=== PATIENT | female | born 1945 | race Two or more races ===

== ENCOUNTER → 2024-10-08 | Outpatient (CLI) | payer MEDICARE, MEDICAID, SELFPAY ==
--- NOTE | 2024-10-08 10:30 | XR_ITS ---
Examination: Sacroiliac joints 3 views TECHNIQUE: AP DAVEY SABRA sacroiliac joints 3 views Exam date and time: October 08, 2024 1145 hours INDICATIONS: Sacral pain years FINDINGS: Moderate bilateral sacroiliitis No fracture Symmetrical sacral foramina IMPRESSION: Moderate bilateral sacroiliitis
--- NOTE | 2024-10-08 10:30 | XR_ITS ---
Examination: Lumbar spine, 5 views Technique: Lumbar spine AP, lateral, coned lateral lower lumbar spine, bilateral obliques 5 views Exam date and time: October 08, 2024 1142 hours INDICATIONS: Lower back pain radiating down the left leg years FINDINGS: Prominent osteopenia Moderate to advanced diffuse facet arthropathy No lumbar fracture Grade 1 anterolisthesis L4 on L5 Moderate degenerative disc disease L1-L2, L2-L3, L5-S1 IMPRESSION: Moderate degenerative disc disease L1-L2, L2-L3, L5-S1
--- NOTE | 2024-10-08 10:30 | XR_ITS ---
Examination:Left hip AP, lateral, AP pelvis 3 views Technique: Hip AP lateral, AP pelvis, 3 views Exam date and time:October 08, 2024 1142 hours INDICATIONS: Low back pain radiating to the left hip years FINDINGS: Prominent osteopenia Moderate narrowing hip joints No left hip fracture or dislocation Right hip bones of the pelvis intact IMPRESSION: Moderate narrowing hip joints.
--- NOTE | 2024-10-08 14:30 | XR_ITS ---
Examination: Bone densitometry Date and time of exam:October 08, 2024 1046 hours INDICATIONS: Hysterectomy age 41, diabetic, personal history osteoporosis Technique: Lumbar spine and hip total bone mineralization values of an calculated. Peak reference and age match control results have been displayed. Findings: Lumbar spine total bone mineralization is0.849 gm/cm2. This is 1.8 standard deviations below peak reference. This is 1.8 standard deviations above age-matched controls. Hip total bone mineralization is 0.829 gm/cm2 This is 1.0 standard deviations below peak reference. This is 1.0 standard deviations above age-matched controls Impression: There is osteopenia based on lumbar spine measurements. There is osteoporosis based on hip measurements Lumbar mineralization is increase 15.1% compared with June 04, 2021 Hip mineralization is decreased 2.4% compared with June 04, 2021
== END | disposition home or self-care (01) ==
PROVIDERS: PCP Nurse Practitioner Family; Referring Provider Nurse Practitioner Family; Visit Provider Nurse Practitioner Family
DX: M85.88 Other specified disorders of bone density and structure, other site (principal); M81.0 Age-related osteoporosis without current pathological fracture; M25.852 Other specified joint disorders, left hip; M51.369 Other intervertebral disc degeneration, lumbar region without mention of lumbar back pain or lower extremity pain; M51.379 Other intervertebral disc degeneration, lumbosacral region without mention of lumbar back pain or lower extremity pain; M46.1 Sacroiliitis, not elsewhere classified
CPT/HCPCS: 72110; 72202; 73502; 77080

== ENCOUNTER → 2025-02-03 | Outpatient (CLI) | payer MEDICARE, MEDICAID, SELFPAY ==
[2025-02-03 11:21] LABS: Basophils % (Auto) 1 % (0-2.5); Eosinophils # (Auto) 0.2 Thou/mm3 (0.0-0.5); Eosinophils % (Auto) 2 % (0-10); Hematocrit 43.2 % (36.0-46.0); Hemoglobin 14.5 g/dL (12.0-16.0); Immature Granulocytes % (Auto) 1 % (0-0); Immature Granulocytes Auto 0.04 Thou/mm3 (0.00-0.00); Lymphocytes # (Auto) 1.3 Thou/mm3 (1.0-4.8); Lymphocytes % (Auto) 15 % (10-50); Mean Corpuscular HGB Conc 33.6 g/dl (31.0-37.0); Mean Corpuscular Hemoglobin 31.9 pg (25.0-35.0); Mean Corpuscular Volume 95 fL (80-100); Monocytes # (Auto) 0.5 Thou/mm3 (0.0-0.8); Monocytes % (Auto) 5 % (0-12); Neutrophils # (Auto) 6.7 Thou/mm3 (1.8-7.7); Neutrophils % (Auto) 77 % (37-80); Nucleated Red Blood Cell % 0 /100 WBC (0); Platelet Count 174 Thou/mm3 (140-440); RDW Standard Deviation 46.2 fL (36.4-46.3); Red Blood Count 4.55 Miln/mm3 (4.00-5.20); White Blood Count 8.8 Thou/mm3 (3.6-11.0)
[2025-02-03 11:45] LABS: B-Type Natriuretic Peptide 22 pg/mL (0-100)
[2025-02-03 11:49] LABS: Alanine Aminotransferase 19 U/L (10-49); Albumin, Serum 4.1 gm/dL (3.4-4.8); Alkaline Phosphatase 87 U/L (46-116); Anion Gap 7 (7-16); Aspartate Amino Transferase 19 U/L (0-34); BUN/Creatinine Ratio 16 Ratio (12-20); Bilirubin,Direct 0.3 mg/dL (0.0-0.3); Bilirubin,Total 0.9 mg/dL (0.3-1.2); Blood Urea Nitrogen 13 mg/dL (9-23); Calcium 9.3 mg/dL (8.3-10.6); Cardiac Risk Estimate 4.1 RATIO (3.7-5.6); Chloride 98 mMol/L (98-107); Cholesterol 185 mg/dL (132-200); Creatinine (Component) 0.8 mg/dL (0.6-1.3); Free T4 (Free Thyroxine) 1.09 ng/dL (0.89-1.76); Glucose 238 mg/dL (74-106); HDL Cholesterol 45 mg/dL (40-60); LDL Cholesterol,Calculated 115 mg/dL (0-130); Osmolality,Calculated 280 (275-295); Potassium 4.2 mMol/L (3.4-5.1); Sodium 136 mMol/L (136-145); Thyroid Stimulating Hormone 2.44 uIU/mL (0.55-4.78); Total Protein 6.9 gm/dL (5.7-8.2); Triglycerides 123 mg/dL (30-150); eGFR > 60 See Note
[2025-02-03 11:51] LABS: Glucose Estimated Average 192 mg/dL (80-131); Hemoglobin A1C 8.3 % Hgb (4.8-6.0)
== END | disposition home or self-care (01) ==
LOC: COPL 10:41
PROVIDERS: PCP Nurse Practitioner Family; Referring Provider Internal Medicine Cardiovascular Disease; Visit Provider Internal Medicine Cardiovascular Disease
DX: E11.65 Type 2 diabetes mellitus with hyperglycemia (principal); E78.5 Hyperlipidemia, unspecified; I11.0 Hypertensive heart disease with heart failure; I50.9 Heart failure, unspecified
CPT/HCPCS: 36415; 80048; 80061; 80076; 83036; 83880; 84439; 84443; 85025

== ENCOUNTER → 2025-03-05 | Outpatient (CLI) | payer MEDICARE, MEDICAID, SELFPAY ==
[2025-03-05 10:38] LABS: Basophils # (Auto) 0.1 Thou/mm3 (0.0-0.2); Basophils % (Auto) 1 % (0-2.5); Eosinophils # (Auto) 0.2 Thou/mm3 (0.0-0.5); Eosinophils % (Auto) 2 % (0-10); Hemoglobin 15.3 g/dL (12.0-16.0); Immature Granulocytes % (Auto) 1 % (0-0); Immature Granulocytes Auto 0.05 Thou/mm3 (0.00-0.00); Lymphocytes # (Auto) 1.3 Thou/mm3 (1.0-4.8); Lymphocytes % (Auto) 14 % (10-50); Mean Corpuscular HGB Conc 33.3 g/dl (31.0-37.0); Mean Corpuscular Hemoglobin 31.9 pg (25.0-35.0); Mean Corpuscular Volume 96 fL (80-100); Monocytes # (Auto) 0.6 Thou/mm3 (0.0-0.8); Monocytes % (Auto) 7 % (0-12); Neutrophils # (Auto) 7.1 Thou/mm3 (1.8-7.7); Neutrophils % (Auto) 77 % (37-80); Nucleated Red Blood Cell % 0 /100 WBC (0); Platelet Count 178 Thou/mm3 (140-440); RDW Standard Deviation 47.4 fL (36.4-46.3); White Blood Count 9.3 Thou/mm3 (3.6-11.0)
[2025-03-05 10:52] LABS: Sed Rate (ESR) 7 mm/hr (0-30)
[2025-03-05 11:04] LABS: Alanine Aminotransferase 16 U/L (10-49); Albumin, Serum 4.4 gm/dL (3.4-4.8); Albumin/Globulin Ratio 1.4 (1.2-2.2); Alkaline Phosphatase 86 U/L (46-116); Anion Gap 6 (7-16); Aspartate Amino Transferase 23 U/L (0-34); BUN/Creatinine Ratio 16 Ratio (12-20); Bilirubin,Total 0.7 mg/dL (0.3-1.2); Blood Urea Nitrogen 11 mg/dL (9-23); C-Reactive Protein 0.5 mg/dL (0.0-0.9); Calcium 9.7 mg/dL (8.3-10.6); Calcium (Corrected) 9.7 mg/dL (8.5-10.1); Carbon Dioxide 34.3 mMol/L (20.0-31.0); Chloride 101 mMol/L (98-107); Creatinine (Component) 0.7 mg/dL (0.6-1.3); Globulin 3.1 gm/dL (2.3-3.5); Glucose 172 mg/dL (74-106); Osmolality,Calculated 284 (275-295); Potassium 3.8 mMol/L (3.4-5.1); Sodium 141 mMol/L (136-145); Total Protein 7.5 gm/dL (5.7-8.2); eGFR > 60 See Note
== END | disposition home or self-care (01) ==
LOC: COPL 09:58
PROVIDERS: PCP Family Medicine; Referring Provider Nurse Practitioner Family; Visit Provider Nurse Practitioner Family
DX: M06.09 Rheumatoid arthritis without rheumatoid factor, multiple sites (principal)
CPT/HCPCS: 36415; 80053; 85025; 85652; 86140

== ENCOUNTER 2025-05-01 10:11 | Outpatient (RCR) | payer MEDICARE, MEDICAID, SELFPAY ==
--- NOTE | 2025-05-01 10:45 | PT.OIERPT ---
PT OP Initial Eval Patient Information Outpatient Physical Therapy Treatment Date: 05/01/25 Visit Reasons: Low back pain Medical Diagnosis: M54.40 Treatment Dx #1: LBP with radiculopathy Start of Care: 05/01/25 Date of Onset: 2 months ago Smoking Status Smoking Status: Never smoker Initial Assessment Subjective: Pt is 80 yr old central african speaking female who reports LBP and B LE pain and numbness worsening x2 months. Increased pain with bending and lifting things and getting out of a chair to start walking. She feels limited with HH chores. She fell years ago and wonders if that has something to do with the pain. PLOF: pt wasn't limited with walking distance by the LBP PMH: RA, HTN, DM, allergies, osteoporosis Imaging: Xray of L/S in EMR Grade 1 anterolisthesis L4 on L5, Moderate degenerative disc disease L1-L2, L2-L3, L5-S1 Pt goal: less pain to walk further Objective: ? Trunk ArOM: ? B SB 50% of normal with pain ? Extension: 20% ? Flexion: to floor with LBP ? B rotation: 60% with pain ? TTP: moderate paraspinals L5-S1 ? Neuro: B SLR: negative Sensation: diminished to light touch B ankles and feet R>L Assessment: ? Pt presents with trunk flexion sensitivity and overlying myofascial pain ? and TTP around L5-S1 consistent with imaging that shows ? lumbar DDD and spondylolisthesis with radiculopathy. Pt requires skilled therapy in order to decrease ? pain and improve sitting/standing tolerance and has poor/fair rehab potential. Barriers to progress may be the spondylolisthesis L4 on L5. Eval followed by HEP printout. Short Term and Residential Goals ? 1. Ind with HEP ? 2. Improved ambulatory tolerance to 10 minutes with <=4/10 LBP ? 3. Decreased lower paraspinal TTP from mod to min 4. Improved HH chore tolerance to at least 30 minutes with <=3/10 LBP and no ?increase in LE ssx ? Treatment Plan 60 day POC 1. Manual therapy ? 2. Therex ? 3. Modalities as indicated, moist heat, ice, estim, mechanical traction Frequency and Duration: 1-2x a week for 8 visits Certification Dates: 05/01/25 to 06/30/25 Procedure Charges OP PT Eval Mod Complex 30 minutes: Yes
== END 2025-05-12 23:59 | disposition home or self-care (01) ==
LOC: CPTX 10:11
PROVIDERS: PCP Nurse Practitioner Family; Referring Provider Nurse Practitioner Family; Visit Provider Nurse Practitioner Family
DX: M54.16 Radiculopathy, lumbar region (principal); I10 Essential (primary) hypertension; E11.9 Type 2 diabetes mellitus without complications
CPT/HCPCS: 97162

== ENCOUNTER 2025-05-06 15:57 | Inpatient (IN) | payer MEDICARE, MEDICAID, SELFPAY ==
[2025-05-06 16:17] VITALS: BP 122/65; PULSE 64; RESP 22; TEMP 36.4; O2SAT 88; BMI 41.1
--- NOTE | 2025-05-06 16:17 | EKG_ITS ---
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
[2025-05-06 16:18] VITALS: O2SAT 93
--- NOTE | 2025-05-06 16:36 | XR_ITS ---
Examination: PA lateral chest 2 views TECHNIQUE: Upright PA and lateral chest 2 views Date and time: May 06, 2025, 1733 hours Comparison August 01, 2019 INDICATIONS: Coughing 2 days. FINDINGS: Pneumonia right middle lobe and right base Mild prominence left ventricle 17 mm pulmonary nodule in the right lower lung zone Mild vascular congestion Deviation trachea to the left which may relate to enlarged left thyroid lobe IMPRESSION: Pneumonia right middle lobe and right base Suggest CT chest without contrast follow-up to exclude 17 mm pulmonary nodule in the right lower lobe and confirm a enlarged left thyroid displacing the trachea to the right
--- NOTE | 2025-05-06 16:38 | EDRME_ITS ---
Rapid Medical Screening Exam [facility] Arrival date/time: 05/06/25 15:57 80-year-old female presents to the emergency department today for complaints of cough, congestion and sore throat as well as shortness of breath and dizziness Patient hypoxic at the time of presentation patient was placed on oxygen Chief Complaint: Dizziness Vital signs: Vital Signs Temperature 97.6 F 05/06/25 16:17 Pulse Rate 64 05/06/25 16:17 Respiratory Rate 22 H 05/06/25 16:17 Blood Pressure 122/65 05/06/25 16:17 Pulse Oximetry (%) 88 L 05/06/25 16:17 Oxygen Delivery Method Room Air 05/06/25 16:17
[2025-05-06 17:04] LABS: Strep A Rapid Negative (Negative)
[2025-05-06 17:06] LABS: Lactate (Lactic Acid) 1.4 mMol/L (0.4-2.0)
[2025-05-06 17:10] LABS: Basophils % (Auto) 0 % (0-2.5); Eosinophils % (Auto) 0 % (0-10); Hematocrit 40.8 % (36.0-46.0); Hemoglobin 13.9 g/dL (12.0-16.0); Immature Granulocytes % (Auto) 0 % (0-0); Immature Granulocytes Auto 0.04 Thou/mm3 (0.00-0.00); Lymphocytes # (Auto) 0.6 Thou/mm3 (1.0-4.8); Lymphocytes % (Auto) 6 % (10-50); Mean Corpuscular HGB Conc 34.1 g/dl (31.0-37.0); Mean Corpuscular Hemoglobin 31.8 pg (25.0-35.0); Mean Corpuscular Volume 93 fL (80-100); Monocytes # (Auto) 0.8 Thou/mm3 (0.0-0.8); Monocytes % (Auto) 9 % (0-12); Neutrophils # (Auto) 7.9 Thou/mm3 (1.8-7.7); Neutrophils % (Auto) 84 % (37-80); Nucleated Red Blood Cell % 0 /100 WBC (0); Platelet Count 170 Thou/mm3 (140-440); RDW Standard Deviation 48.8 fL (36.4-46.3); Red Blood Count 4.37 Miln/mm3 (4.00-5.20); White Blood Count 9.3 Thou/mm3 (3.6-11.0)
[2025-05-06 17:26] LABS: B-Type Natriuretic Peptide 57 pg/mL (0-100)
[2025-05-06 17:35] LABS: Alanine Aminotransferase 26 U/L (10-49); Albumin, Serum 4.3 gm/dL (3.4-4.8); Albumin/Globulin Ratio 1.6 (1.2-2.2); Alkaline Phosphatase 81 U/L (46-116); Anion Gap 8 (7-16); Aspartate Amino Transferase 34 U/L (0-34); BUN/Creatinine Ratio 13 Ratio (12-20); Bilirubin,Total 0.3 mg/dL (0.3-1.2); Blood Urea Nitrogen 13 mg/dL (9-23); Calcium 9.4 mg/dL (8.3-10.6); Calcium (Corrected) 9.4 mg/dL (8.5-10.1); Carbon Dioxide 32.8 mMol/L (20.0-31.0); Chloride 98 mMol/L (98-107); Globulin 2.7 gm/dL (2.3-3.5); Glucose 78 mg/dL (74-106); Osmolality,Calculated 276 (275-295); Potassium 4.2 mMol/L (3.4-5.1); Procalcitonin 0.18 ng/ml (0.0-0.49); Sodium 139 mMol/L (136-145); Troponin I < 0.020 ng/mL (0.0-0.045); eGFR 57 See Note
[2025-05-06 18:29] LABS: Collection Type, Urine Clean Catch
[2025-05-06 18:48] LABS: Amorphous Crystals,Urine Present (Absent); Bilirubin,Urine Negative (Negative); Blood,Urine Negative (Negative); Clarity,Urine Turbid (Clear/Hazy); Color,Urine Yellow (Lt Yel-Yel); Glucose, Urine Negative (Negative); Hyaline Casts,Urine 4 /hpf (0-1); Ketones,Urine Trace (Negative); Leukocyte Esterase,Urine Negative (Negative); Nitrite,Urine Negative (Negative); Protein,Urine 2+ (Neg - Trace); RBC,Urine 5 /hpf (0-3); Specific Gravity,Urine 1.031 (1.001-1.035); Squamous Epithelial Cell,Urine 5 /hpf (0-5); WBC,Urine 7 /hpf (0-5)
[2025-05-07] VITALS (18 sets, daily range): BP systolic 125–184; BP diastolic 50–79; PULSE 57–84; RESP 16–26; TEMP 36.1–37.1; O2SAT 90–100
--- NOTE | 2025-05-07 04:12 | XR_ITS ---
Examination: CT chest, without intravenous contrast. Sagittal and coronal 2-D reconstructions. Exam date and time: May 07, 2025 at 0459 hours INDICATIONS: Fever coughing dizziness beginning 2 days ago, 17 mm pulmonary nodule right lower lobe on CT chest study May 06, 2025 CTDI:vol (mGy) 21.5 DLP: (mGycm) 771 Technique: Multiple 3.0 mm axial sections of the chest to been obtained. Bone and lung density settings are obtained. Sagittal and coronal 2-D reconstructions have been obtained. Low dose protocols were performed. One or more of the following dose reduction techniques were used; automated exposure control, adjustment of the mA and/or KV according to patient size, use of iterative reconstruction technique. Findings: Marked left thyromegaly with left thyroid nodules extending retrosternal displacing the trachea to the right No thoracic aortic aneurysmal dilatation Pulmonary artery segments are not enlarged No paratracheal lymphadenopathy 13 mm spiculated nodule right middle lobe No lobar dense consolidation Mild vascular congestion Small aortopulmonary window lymph nodes No visualized liver or splenic lesion IMPRESSION: Marked left thyromegaly extending substernal with left thyroid nodules, recommend dedicated thyroid sonography follow-up Small precarinal lymph nodes 13 mm spiculated nodule right middle lobe, differential would include lung cancer
--- NOTE | 2025-05-07 04:14 | PD.EDURI ---
Upper Respiratory Inf. 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 Patient denies vomiting or any other associated symptoms or aggravating factors. No modifying factors, no radiation, no migration. No pain reported overall. No other concerns or complaints expressed at this time. Related Data Home Medications ?Medication ?Instructions ?Recorded ?Confirmed folic acid 1 mg tablet 3 mg PO DAILY ##0 07/20/13 02/10/22 alendronate 70 mg tablet 70 mg PO QWEEK 02/10/22 02/10/22 amlodipine 10 mg tablet 10 mg PO QDAY 02/10/22 02/10/22 azelastine 0.05 % eye drops 1 drp ophthalmic (eye) BID 02/10/22 02/10/22 docusate sodium 250 mg capsule 250 mg PO QDAY 02/10/22 02/10/22 insulin glargine 100 unit/mL (3 60 unit subcut QAM 02/10/22 02/10/22 mL) subcutaneous pen (Basaglar KwikPen U-100 Insulin) losartan 100 1 tab PO QDAY 02/10/22 02/10/22 mg-hydrochlorothiazide 25 mg tablet metformin 1,000 mg tablet 1,000 mg PO BID 02/10/22 02/10/22 methotrexate sodium 2.5 mg tablet 2.5 mg PO QWEEK 02/10/22 02/10/22 sitagliptin phosphate 100 mg 100 mg PO QDAY 02/10/22 02/10/22 tablet (Januvia) Allergies Allergy/AdvReac Type Severity Reaction Status Date / Time No Known Allergies Allergy Verified 05/06/25 16:05 Review of Systems Review of Systems Systems Reviewed: All systems reviewed, normal except as documented Past Medical History Past Medical History OTHER HISTORY: Positive Blood Transfusions ED Exam Narrative Physical exam: GENERAL APPEARANCE: alert and oriented x 4, well-developed, well-nourished, no acute distress VITALS: All vitals were reviewed and the pulse ox is 98% on room air, which is normal according to my interpretation. HEENT: Normocephalic, atraumatic; pupils equal, round, reactive to light; EOMI; mucous membranes pink, moist; oropharynx clear NECK: Supple LUNGS: BL wheezes, no rales, no rhonchi HEART: Regular rate, regular rhythm; normal S1, S2; no murmurs ABDOMEN: non distended; normal BS; soft, no tenderness, no guarding, no rebound; no masses, no organomegaly, no hernia BACK: no CVA tenderness EXTREMITIES: atraumatic; no edema NEUROLOGIC: awake; alert and oriented x4; cranial nerves II-XII grossly intact; no focal sensory or motor deficits PSYCHIATRIC: appropriate mood and affect SKIN: warm, dry, normal color; no rashes Course Course Course Narrative: CXR is ordered for determining the etiology of shortness of breath. Quality Measures none Orders Category Date Time Status Bedside COVID-19 Antigen Test NOW Care 05/06/25 16:38 Active Bedside Influenza A&B Antigen Test NOW Care 05/06/25 16:38 Completed EKG (ED ONLY) *Do not use* NOW Care 05/06/25 16:17 Completed EKG (ED ONLY) *Do not use* NOW Care 05/06/25 16:[address] chest wo con Stat Exams 05/07/25 04:12 Taken EKG (ED Only) Stat Exams 05/06/25 16:17 Draft EKG (ED Only) Stat Exams 05/06/25 16:36 Ordered XR chest 2V Stat Exams 05/06/25 16:36 Completed B-Type Natriuretic Peptide Stat Lab 05/06/25 16:58 Completed Blood Culture (Lab) Stat Lab 05/06/25 16:58 Received CBC Stat Lab 05/06/25 16:58 Completed Comprehensive Metabolic Panel Stat Lab 05/06/25 16:58 Completed Lactic Acid [Lactate (Lactic Acid)] Stat Lab 05/06/25 16:58 Completed Procalcitonin Stat Lab 05/06/25 16:58 Completed Strep A Rapid Stat Lab 05/06/25 16:43 Completed Troponin I Stat Lab 05/06/25 16:58 Completed Urinalysis Stat Lab 05/06/25 18:00 Completed ALBUTEROL RT 0.5ml [Proventil Rt 0.5ml] Med 05/07/25 05:38 Discontinued 5 mg INH X1 ONE ALBUTEROL RT 5 ml [Proventil Rt 5 ml] Med 05/07/25 05:23 Discontinued 5 mg INH X1 ONE Albuterol/Ipratr Rt Alice [Duoneb Rt Alice] Med 05/07/25 04:29 Discontinued 3 ml INH X1 ONE Ipratropium [place] Rt Alice [Atrovent Rt Alice] Med 05/07/25 05:30 Discontinued 1 mg INH X1 ONE Ipratropium [place] Rt Alice [Atrovent Rt Alice] Med 05/07/25 05:23 Discontinued 5 mg INH X1 ONE MethylPREDNISolone.* [SoluMEDROL Inj] Med 05/07/25 04:30 Discontinued 125 mg IVP X1 ONE Sodium Chloride Rt Alice 0.9% [NS Rt Alice 0.9%] Med 05/07/25 05:38 Active 3 ml INH PRN PRN cefTRIAXone/D5w 1gm IV premix [Rocephin/D5w 1gm IV Med 05/07/25 04:30 Discontinued premix] 1 gm in 50 ml IV X1 Vital Signs Vital signs: Vital Signs Temperature 97.6 F 05/06/25 16:17 Pulse Rate 64 05/06/25 16:17 Respiratory Rate 22 H 05/06/25 16:17 Blood Pressure 122/65 05/06/25 16:17 Pulse Oximetry (%) 88 L 05/06/25 16:17 Oxygen Delivery Method Room Air 05/06/25 16:17 Upper Respiratory Infection MDM Narrative MDM Narrative:: Scribe Attestation: Saloni Yates am scribing for and in the presence of Dr. Steven. Provider Notation: Although this document has been carefully reviewed, there may still be some phonetic and other typographical errors.? These errors are purely grammatical due to imperfections in the software program and should not be construed in any way to? compromise the substance of the patient's medical care during this visit. 0411: Patient has known thyroid nodule with Hx of US and biopsy 12/31/2021. Patient data External records reviewed:: [facility] previous records (Reviewed prior ED records from 02/10/22. Patient was seen for Abdominal pain.) Clinical information provided by:: patient Social determinants that could affect healthcare access:: none Patient has the following chronic illnesses:: None reported How is presenting disease/condition affected by chronic disease/condition?: no chronic disease Evaluation data The following diagnostics were reviewed and interpreted by me:: lab results, radiology exam(s) and EKG tracing(s) (EKG manual reading, my interpretation: sinus rhythm, rate: 62 bpm, Right BBBB, T-wave inversions in 2,3, AFV V1, V2, V3, V4, and V5, Q-wave in lead III and AVF, no acute ischemic changes.) Lab and/or radiology exams considered but not ordered:: None Interpretation Summary: RADIOLOGY Chest X-Ray: Patient: LYDIA ANTHONY. Record#: [id number] Birthdate: 1945 Age/Sex: 80 / F Location: [facility] Attending Dr: Ordering Physician: Angela (ALLEN)Grayson NP Date of Service: 05/06/25 Procedure(s): XR chest 2V Accession Number(s): [id number] cc: Angela (ALLEN),Grayson VILLA; Tay Chavez MD; Frank Colmenares MD~ Examination: PA lateral chest 2 views TECHNIQUE: Upright PA and lateral chest 2 views Date and time: May 06, 2025, 1733 hours Comparison August 01, 2019 INDICATIONS: Coughing 2 days. FINDINGS: Pneumonia right middle lobe and right base Mild prominence left ventricle 17 mm pulmonary nodule in the right lower lung zone Mild vascular congestion Deviation trachea to the left which may relate to enlarged left thyroid lobe IMPRESSION: Pneumonia right middle lobe and right base Suggest CT chest without contrast follow-up to exclude 17 mm pulmonary nodule in the right lower lobe and confirm a enlarged left thyroid displacing the trachea to the right Dictated By: Frank Colmenares MD Signed By: <Electronically signed by Frank Colmenares MD in OV> 05/06/[address]: Pending final radiology report. Medications / Prescriptions Medications or Prescriptions considered but not ordered:: None Medication administrations:: Medication Administration History Sodium Chloride (Sodium Chloride Rt Alice 0.9% 3 Ml Nebu) 3 ml INH PRN PRN PRN Reason: SOLN Stop: 06/06/25 05:37 Discontinued Medications Albuterol (Albuterol Rt 25 Mg/5 Ml Nebu) 5 mg INH X1 ONE Stop: 05/07/25 05:24 Albuterol (Albuterol Rt 2.5 Mg/0.5 Ml Nebu) 5 mg INH X1 ONE Stop: 05/07/25 05:39 Last Admin: 05/07/25 05:44 Dose: 5 mg Documented By: VERONIKA Albuterol/Ipratropium (Albuterol/Ipratropium (Duoneb) Rt Alice 3 Ml Nebu) 3 ml INH X1 ONE Stop: 05/07/25 04:30 Last Admin: 05/07/25 05:11 Dose: 3 ml Documented By: VERONIKA Ceftriaxone Sodium/Dextrose (Rocephin/D5w 1gm Iv Premix) 1 gm in 50 mls @ 100 mls/hr IV X1 ONE Stop: 05/07/25 04:59 Last Admin: 05/07/25 05:30 Dose: 100 mls/hr Documented By: Ipratropium [place] (Ipratropium Rt 0.5 Mg/ 2.5 Ml Nebu) 5 mg INH X1 ONE Stop: 05/07/25 05:24 Ipratropium [place] (Ipratropium Rt 0.5 Mg/ 2.5 Ml Nebu) 1 mg INH X1 ONE Stop: 05/07/25 05:31 Last Admin: 05/07/25 05:44 Dose: 1 mg Documented By: VERONIKA Methylprednisolone Sodium Succinate (Methylprednisolone Sod Succ 62.5 Mg/Ml 2ml Vial) 125 mg IVP X1 ONE Stop: 05/07/25 04:31 Last Admin: 05/07/25 05:28 Dose: 125 mg Documented By: SE See above if any. Consultations Consultation(s) initiated? (list below): Yes Consultation #1 (Physician, Specialty, Details): Discussed with Dr. Jones for admission. Reviewed the patient?s HPI, PMHx, lab and/or radiology results. Discussed treatment plan. Will consult an admission to the hospitalist. Time: 05:42 Diagnosis Upper Respiratory Differential Diagnosis: upper respiratory infection, otitis media, sinusitis, viral infection, bronchitis, influenza, pharyngitis and other (Bronchospasm) Most likely diagnosis given after review of the tests above:: Pneumonia, Hypoxia Admission Indicated Admission indicated?: indicated Explain why admission is indicated or not indicated:: Pneumonia and hypoxia Admission Request Was there a request for admission?: Yes Admission Attestation Admission request attestation: Discussed case with [] from Hospitalist service regarding admission. Discussed patients ED course, exam findings, labs, and radiology results. The Hospitalist [agrees,declines] to accept the patient for admission. Disposition Plan Disposition Plan: Admit Discharge Plan Prescriptions/Referrals Prescriptions/Med Rec: No Action folic acid 1 MG tablet 3 mg PO DAILY Qty: 0 Rx Instructions: TAKE THREE TABLETS BY MOUTH DAILY azelastine 0.05 % Drops 1 drp OPHTHALMIC (EYE) BID alendronate 70 mg Tablet 70 mg PO QWEEK losartan-hydrochlorothiazide 100-25 mg Tablet 1 tab PO QDAY methotrexate sodium 2.5 mg Tablet 2.5 mg PO QWEEK Rx Instructions: TAKE FIVE TABLETS BY MOUTH ONCE A WEEK FOR PAIN AND INFLAMMATION amlodipine 10 mg Tablet 10 mg PO QDAY metformin 1,000 mg Tablet 1,000 mg PO BID docusate sodium 250 mg Capsule 250 mg PO QDAY Januvia 100 mg Tablet 100 mg PO QDAY [place] U-100 Insulin 100 unit/mL (3 mL) Insulin Pen 60 unit SUBCUT QAM Referrals: Tay Chavez MD [Primary Care Provider] - In 1 week Problem List Clinical Impression: Pneumonia, Hypoxia Patient/Caregiver Discharge Instructions Print Language: Amharic
[2025-05-07] MEDS: ALBUTEROL/IPRATROPIUM (Duoneb) RT SOL 3 ML NEBU INH ×3 (05:11→18:26)
[2025-05-07] MEDS: MethylPREDNISolone SOD SUCC 62.5 MG/ML 2ML VIAL 125 MG IVP (05:28)
[2025-05-07] MEDS: cefTRIAXone/D5w 1gm IV premix 1 GM/50 ML BAG IV (05:30)
[2025-05-07] MEDS: ALBUTEROL RT 2.5 MG/0.5 ML NEBU 5 MG INH (05:44)
[2025-05-07] MEDS: IPRATROPIUM RT 0.5 MG/ 2.5 ML NEBU 1 MG INH (05:44)
--- NOTE | 2025-05-07 06:03 | PRELIM_ITS ---
CT scan of the chest without intravenous contrast (axial sections with sagittal and coronal reformats) May 07, 2025 at 0459 hours Clinical History: Pulmonary nodule. Comparison: No prior study is available for comparison. Findings: There is a 1.3x1.4 cm irregular spiculated nodule in the right middle lobe (axial image 94). There are scattered faint opacities in bilateral upper and left lower lobes. No evidence of pleural effusion or pneumothorax. There are few enlarged mediastinal lymph nodes. The thoracic aorta demonstrates atheromatous calcification without evidence of aneurysm. Coronary artery calcification is noted. There is no pericardial effusion. There is a 5x6 cm hypodense nodule in the left lobe of thyroid gland with retrosternal extension. Degenerative changes are identified in the spine. A small hiatal hernia is present. Fatty infiltration of the liver is noted. Impression: 1. Irregular spiculated nodule in the right middle lobe. which may be neoplastic. Recommend comparison with prior studies or follow-up to confirm stability. 2. Scattered faint opacities in bilateral lungs, which may be infectious. Recommend clinical correlation and follow-up. 3. Large hypodense nodule in the left lobe of thyroid. Recommend further evaluation with sonography, if clinically indicated. 4. Other findings as described above. Report Electronically Signed By: Alexey Pelletier 05/07/2025 6:03:13 AM [EST]
--- NOTE | 2025-05-07 08:37 | PD.EDADDENDU ---
Emergency Room Addendum Addendum Narrative: 0600: Care assumed from Dr. Steven, the previous shift emergency physician. Past medical, surgical, social and family history reviewed. Vitals and home medications reviewed. I will assume the care of the patient at this time, pending diagnostic tests and final disposition. Please refer to the emergency department record for history and examination from initial visit.? Physical exam by me shows patient under no acute distress at this time. Diagnoses: - Pneumonia right middle lobe and right base Results Objective Laboratory: Laboratory Last Values WBC 9.3 Thou/mm3 (3.6-11.0) 05/06/25 16:58 RBC 4.37 Miln/mm3 (4.00-5.20) 05/06/25 16:58 Hgb 13.9 g/dL (12.0-16.0) 05/06/25 16:58 Hct 40.8 % (36.0-46.0) 05/06/25 16:58 MCV 93 fL (80-100) 05/06/25 16:58 MCH 31.8 pg (25.0-35.0) 05/06/25 16:58 MCHC 34.1 g/dl (31.0-37.0) 05/06/25 16:58 RDW Std Deviation 48.8 fL (36.4-46.3) H 05/06/25 16:58 Plt Count 170 Thou/mm3 (140-440) 05/06/25 16:58 Neut % (Auto) 84 % (37-80) H 05/06/25 16:58 Lymph % (Auto) 6 % (10-50) L 05/06/25 16:58 Hughes % (Auto) 9 % (0-12) 05/06/25 16:58 Eos % (Auto) 0 % (0-10) 05/06/25 16:58 Baso % (Auto) 0 % (0-2.5) 05/06/25 16:58 Neut # (Auto) 7.9 Thou/mm3 (1.8-7.7) H 05/06/25 16:58 Lymph # (Auto) 0.6 Thou/mm3 (1.0-4.8) L 05/06/25 16:58 Hughes # (Auto) 0.8 Thou/mm3 (0.0-0.8) 05/06/25 16:58 Eos # (Auto) 0.0 Thou/mm3 (0.0-0.5) 05/06/25 16:58 Baso # (Auto) 0.0 Thou/mm3 (0.0-0.2) 05/06/25 16:58 Immature Gran # (Auto) 0.04 Thou/mm3 (0.00-0.00) H 05/06/25 16:58 Absolute Nucleated RBC 0.00 Thou/mm3 (0.00-0.00) 05/06/25 16:58 Immature Gran % 0 % (0-0) 05/06/25 16:58 Nucleated RBC % 0 /100 WBC (0) 05/06/25 16:58 Sodium 139 mMol/L (136-145) 05/06/25 16:58 Potassium 4.2 mMol/L (3.4-5.1) 05/06/25 16:58 Chloride 98 mMol/L (98-107) 05/06/25 16:58 Carbon Dioxide 32.8 mMol/L (20.0-31.0) H 05/06/25 16:58 Anion Gap 8 (7-16) 05/06/25 16:58 BUN 13 mg/dL (9-23) 05/06/25 16:58 Creatinine 1.0 mg/dL (0.6-1.3) 05/06/25 16:58 Estim Creat Clear Calc 51.0 mL/min (>60) L 05/06/25 16:58 eGFR 57 See Note (60-) L 05/06/25 16:58 BUN/Creatinine Ratio 13 Ratio (12-20) 05/06/25 16:58 Glucose 78 mg/dL (74-106) 05/06/25 16:58 Calculated Osmolality 276 (275-295) 05/06/25 16:58 Lactic Acid 1.4 mMol/L (0.4-2.0) 05/06/25 16:58 Calcium 9.4 mg/dL (8.3-10.6) 05/06/25 16:58 Corrected Calcium 9.4 mg/dL (8.5-10.1) 05/06/25 16:58 Total Bilirubin 0.3 mg/dL (0.3-1.2) 05/06/25 16:58 AST 34 U/L (0-34) 05/06/25 16:58 ALT 26 U/L (10-49) 05/06/25 16:58 Alkaline Phosphatase 81 U/L (46-116) 05/06/25 16:58 Troponin I < 0.020 ng/mL (0.0-0.045) 05/06/25 16:58 B-Natriuretic Peptide 57 pg/mL (0-100) 05/06/25 16:58 Total Protein 7.0 gm/dL (5.7-8.2) 05/06/25 16:58 Albumin 4.3 gm/dL (3.4-4.8) 05/06/25 16:58 Globulin 2.7 gm/dL (2.3-3.5) 05/06/25 16:58 Albumin/Globulin Ratio 1.6 (1.2-2.2) 05/06/25 16:58 Procalcitonin 0.18 ng/ml (0.0-0.49) 05/06/25 16:58 Ur Collection Type Clean Catch 05/06/25 18:00 Urine Color Yellow (Lt Yel-Yel) 05/06/25 18:00 Urine Clarity Turbid (Clear/Hazy) A 05/06/25 18:00 Urine pH 6.0 (5.0-7.0) 05/06/25 18:00 Ur Specific [place] 1.031 (1.001-1.035) 05/06/25 18:00 Urine Protein 2+ (Neg - Trace) A 05/06/25 18:00 Urine Glucose (UA) Negative (Negative) 05/06/25 18:00 Urine Ketones Trace (Negative) 05/06/25 18:00 Urine Blood Negative (Negative) 05/06/25 18:00 Urine Nitrite Negative (Negative) 05/06/25 18:00 Urine Bilirubin Negative (Negative) 05/06/25 18:00 Urine Urobilinogen (Auto) 3.0 mg/dL (0.0-1.0) 05/06/25 18:00 Ur Leukocyte Esterase Negative (Negative) 05/06/25 18:00 Urine RBC 5 /hpf (0-3) H 05/06/25 18:00 Urine WBC 7 /hpf (0-5) H 05/06/25 18:00 Ur Squamous Epith Cells 5 /hpf (0-5) 05/06/25 18:00 Amorphous Crystals Present (Absent) A 05/06/25 18:00 Urine Bacteria None (None) 05/06/25 18:00 Hyaline Casts 4 /hpf (0-1) H 05/06/25 18:00 Group A Strep Rapid Negative (Negative) 05/06/25 16:43 Imaging: Procedure(s): XR chest 2V Accession Number(s): [id number] cc: Angela (ALLEN),Grayson VILLA; Tay Chavez MD; Frank Colmenares MD~ Examination: PA lateral chest 2 views TECHNIQUE: Upright PA and lateral chest 2 views Date and time: May 06, 2025, 1733 hours Comparison August 01, 2019 INDICATIONS: Coughing 2 days. FINDINGS: Pneumonia right middle lobe and right base Mild prominence left ventricle 17 mm pulmonary nodule in the right lower lung zone Mild vascular congestion Deviation trachea to the left which may relate to enlarged left thyroid lobe IMPRESSION: Pneumonia right middle lobe and right base Suggest CT chest without contrast follow-up to exclude 17 mm pulmonary nodule in the right lower lobe and confirm a enlarged left thyroid displacing the trachea to the right Dictated By: Frank Colmenares MD
[2025-05-07] MEDS: AZITHROMYCIN INJ 500 MG in SODIUM CHLORIDE 0.9% 250 ML 250 ML 250 MG IV (10:10)
--- NOTE | 2025-05-07 13:15 | PD.RESHP ---
Documentation for date of: 05/07/25 HPI History of Present Illness History of present illness: Miss Stephens a 80 y/o female patient with significant medical history of hypertension, hyperlipidemia, diabetes, rheumatoid arthritis (on DMARD's) and 5.7 cm thyroid nodule (non-diagnostic based on 2021 FNA) came to ED for shortness of breath, sore throat, cough and chills that started x1 week ago. Patient denied fever, nausea, vomiting, diarrhea, chest pain/pressure or other associated symptoms. Patient has had a thyroid nodule that has been stable in size since 2021, but she does endorse some intermittent dysphagia. ED vital was significant for tachypnea and hypoxia. CBC, chemistry and urinalysis were unremarkable. Chest x-ray showed: Pneumonia right middle lobe and right base, 17 mm pulmonary nodule in the right lower lobe and confirm a enlarged left thyroid displacing the trachea to the right. Chest CT indicated Marked left thyromegaly extending substernal with left thyroid nodules, Small precarinal lymph nodes,13 mm spiculated nodule right middle lobe. Physical exam significant for b/l wheezing with RUL > TIRSO. Patient will be admitted for pneumonia management and further thyroid nodule workup. Medical Hx: HTN, HLD, DM2, RA, thyroid nodule Medications (need reconciliation): amlodipine, hydroxychloroquine, insulin glargine, loratadine, metformin, methotrexate, metoprolol xl, Januvia Social Hx: denied smoking cigarettes, drinking alcohol or using other illicit drugs Allergies: NKDA Code Status: Full Code Review of Systems Review of Systems Systems Reviewed: All systems reviewed, normal except as documented Exam Vital Signs Temp Pulse Resp BP Pulse Ox O2 Del Method O2 Flow Rate 98 F 77 22 H 125/69 96 Nasal Cannula 2 05/07/25 10:31 05/07/25 11:08 05/07/25 11:08 05/07/25 10:31 05/07/25 11:08 05/07/25 10:31 05/07/25 10:31 Narrative Exam Constitutional: well-developed, well-nourished, in no acute distress, lying in bed HEENT: NCAT, EOMI, reactive round pupils b/l, left thyroid nodule noted, patent nares b/l, moist mucous membranes Lung: CTAB, no wheezing, no rhonchi Heart: Regular S1S2, no murmurs, gallops, or rubs Abdomen: Soft, non-distended, non-tender, bowel sounds present throughout Extremities: No cyanosis, clubbing, or edema, LE pulses present b/l Neurologic: No focal sensory or motor deficits noted, AOx3, appropriate affect Skin: Warm, dry, no lesions or rashes noted Results: Labs 05/08/25 05:03 05/08/25 05:03 Labs: Short CBC 05/06/25 Range/Units 16:58 WBC 9.3 (3.6-11.0) Thou/mm3 Hgb 13.9 (12.0-16.0) g/dL Hct 40.8 (36.0-46.0) % Plt Count 170 (140-440) Thou/mm3 BMP 05/06/25 16:58 Sodium 139 Potassium 4.2 Chloride 98 Carbon Dioxide 32.8 H BUN 13 Creatinine 1.0 Glucose 78 Calcium 9.4 Cardiac Enzymes 05/06/25 Range/Units 16:58 Troponin I < 0.020 (0.0-0.045) ng/mL Liver Function 05/06/25 Range/Units 16:58 Total Bilirubin 0.3 (0.3-1.2) mg/dL AST 34 (0-34) U/L ALT 26 (10-49) U/L Alkaline Phosphatase 81 (46-116) U/L Albumin 4.3 (3.4-4.8) gm/dL Urine 05/06/25 Range/Units 18:00 Urine Color Yellow (Lt Yel-Yel) Urine Clarity Turbid A (Clear/Hazy) Urine pH 6.0 (5.0-7.0) Ur Specific [place] 1.031 (1.001-1.035) Urine Protein 2+ A (Neg - Trace) Urine Glucose (UA) Negative (Negative) Quality Measures Quality Measures none Advance care planning discussed with:: other Medications Home Medications and Allergies Home Medications ?Medication ?Instructions ?Recorded ?Confirmed ?Type insulin glargine 100 unit/mL (3 60 unit subcut QAM 02/10/22 05/07/25 History mL) subcutaneous pen (Basaglar KwikPen U-100 Insulin) metformin 1,000 mg tablet 1,000 mg PO BID 02/10/22 05/07/25 History methotrexate sodium 2.5 mg tablet 2.5 mg PO QWEEK 02/10/22 05/07/25 History sitagliptin phosphate 100 mg 100 mg PO QDAY 02/10/22 05/07/25 History tablet (Januvia) amlodipine 5 mg tablet 5 mg PO DAILY 05/07/25 05/07/25 History diclofenac sodium 50 mg 50 mg PO BID PRN pain 05/07/25 05/07/25 History tablet,delayed release hydroxychloroquine 200 mg tablet 200 mg PO DAILY 05/07/25 05/07/25 History loratadine 10 mg tablet 10 mg PO DAILY 05/07/25 05/07/25 History metoprolol succinate 25 mg 25 mg PO DAILY 05/07/25 05/07/25 History tablet,extended release 24 hr Allergies Allergy/AdvReac Type Severity Reaction Status Date / Time No Known Allergies Allergy Verified 05/06/25 16:05 Visit Medications Acetaminophen (Acetaminophen 325 Mg Tablet) 650 mg PO Q6H PRN PRN Reason: Fever >101.5 Stop: 06/06/25 08:56 Albuterol/Ipratropium (Albuterol/Ipratropium (Duoneb) Rt Alice 3 Ml Nebu) 3 ml INH Q6HRRT NATALY Stop: 06/06/25 12:59 Heparin Sodium (Porcine) (Heparin Sod Inj 5000 Unit/Ml Vial) 5,000 unit SC Q8HR [facility] Stop: 05/21/25 13:59 Ceftriaxone Sodium/Dextrose (Rocephin/D5w 1gm Iv Premix) 1 gm in 50 mls @ 100 mls/hr IV QDAY NATALY Stop: 05/15/25 08:59 Azithromycin 500 mg/ Sodium (Chloride) 250 mls @ 250 mls/hr IV QDAY [facility] Stop: 05/14/25 09:01 Ibuprofen (Ibuprofen Tab 600 Mg Tablet) 600 mg PO Q6H PRN PRN Reason: PAIN Stop: 06/06/25 08:56 Metoclopramide HCl (Metoclopramide 5 Mg Tablet) 10 mg PO Q6H PRN PRN Reason: NAUSEA OR VOMITING Stop: 06/06/25 08:56 Sodium Chloride (Sodium Chloride Rt Alice 0.9% 3 Ml Nebu) 3 ml INH PRN PRN PRN Reason: SOLN Stop: 06/06/25 05:37 Discontinued Medications Albuterol (Albuterol Rt 25 Mg/5 Ml Nebu) 5 mg INH X1 ONE Stop: 05/07/25 05:24 Last Admin: 05/07/25 07:20 Dose: Not Given Albuterol (Albuterol Rt 2.5 Mg/0.5 Ml Nebu) 5 mg INH X1 ONE Stop: 05/07/25 05:39 Last Admin: 05/07/25 05:44 Dose: 5 mg Albuterol/Ipratropium (Albuterol/Ipratropium (Duoneb) Rt Alice 3 Ml Nebu) 3 ml INH X1 ONE Stop: 05/07/25 04:30 Last Admin: 05/07/25 05:11 Dose: 3 ml Ceftriaxone Sodium/Dextrose (Rocephin/D5w 1gm Iv Premix) 1 gm in 50 mls @ 100 mls/hr IV X1 ONE Stop: 05/07/25 04:59 Last Infusion: 05/07/25 06:00 Dose: Infused Azithromycin 500 mg/ Sodium (Chloride) 250 mls @ 250 mls/hr IV X1 ONE Stop: 05/07/25 10:14 Last Infusion: 05/07/25 11:10 Dose: Infused Ipratropium Warren (Ipratropium Rt 0.5 Mg/ 2.5 Ml Nebu) 5 mg INH X1 ONE Stop: 05/07/25 05:24 Last Admin: 05/07/25 07:20 Dose: Not Given Ipratropium [place] (Ipratropium Rt 0.5 Mg/ 2.5 Ml Nebu) 1 mg INH X1 ONE Stop: 05/07/25 05:31 Last Admin: 05/07/25 05:44 Dose: 1 mg Methylprednisolone Sodium Succinate (Methylprednisolone Sod Succ 62.5 Mg/Ml 2ml Vial) 125 mg IVP X1 ONE Stop: 05/07/25 04:31 Last Admin: 05/07/25 05:28 Dose: 125 mg Assessment & Plan Plan Miss Stephens a 80 y/o female patient with significant medical history of hypertension, hyperlipidemia, diabetes, rheumatoid arthritis (on DMARD's) and 5.7 cm thyroid nodule (non-diagnostic based on 2021 FNA) came to ED for shortness of breath, sore throat, cough and chills that started x1 week ago. Patient admitted for pneumonia and further workup of thyroid nodule. #AHRF 2/2 #Community acquired pneumonia #Immunocompromised Patient endorsing chills, cough and SOB for x1 week CXR indicative of right lobe PNA Patient immunocompromised due to DMARD's for RA Plan: -Start Cefepime and azithro IV -Duonebs Q6H -Bcx pending -Cocci IgG and IgM pending -Acetaminophen for fever and pain -Follow up CBC #Left middle thyroid nodule #Speculated lung nodule Patient with 5.7 cm left middle lobe thyroid nodule 2021 FNA resulted non-diagnostic due to sample Patient complaining of intermittent dysphagia Chest CT indicated: Marked left thyromegaly with left thyroid nodules extending retrosternal displacing the trachea to the right CXR and chest CT also show 13mm spiculated nodule of right middle lobe, concern for malignancy Plan: -IR guided FNA scheduled for tomorrow -NPO midnight -Will consider biopsy #Rheumatoid arthritis #DMARD's Patient on home med methotrexate and hydroxychloroquine Plan: -Hold off home meds in setting of PNA infection #HTN Plan: -Restart home med #DM2 Plan: -Follow up A1c -[facility] Health Maintenance Dispo: Patient admitted for PNA requiring IV abx, pending FNA of thyroid nodule Diet: NPO at midnight for FNA in morning DVT/PPx: Heparin GI ppx: Protonix Lines: PIV Code Status: Full Code This patient care was discussed with my attending Dr. Justus Cantor MD PGY-2 Disclaimer: Minor errors in client services coordinator may be present since this note was dictated by speech recognition software. Attending Provider Attestation/Addendum [place], Latoya Jerome DO, attest that I was physically present for the yoon portions of the service and evaluated the patient with the resident and I reviewed and discussed the case with the resident and agree with the resident's findings and plans of care as documented above Patient is a 80-year-old female with past medical history of hypertension, hyperlipidemia, RA and diabetes who presented to the ED with fever, chills, diaphoresis and shortness of breath. Patient states that she was referred by her outpatient clinic to come to the ED due to her symptoms. She states that she had upper respiratory symptoms for about a week. She denies any sick contacts. She endorses having productive sputum and cough. She states that she is very short of breath when she has coughing spells. A CT chest was done in the ED which shows marked left thyromegaly extending substernal with left thyroid nodules. She also has small precarinal lymph nodes and a 13 mm spiculated nodule in the right middle lobe. Upon further questioning regarding the left thyroid nodule, patient states that she was once told she had cancer and underwent some studies, but was lost to follow-up. It appears that patient had a thyroid biopsy here at the hospital on 12/31/2021 during which the pathology was nondiagnostic. However, the size of the mass appears to be unchanged in comparison to the ultrasound in 2021. On exam, patient does have some inspiratory wheezing in the upper airways that radiates into the upper chest. Patient states that she often has some sore throat and infections. Family at bedside denies any changes in her voice. She does have coughing spells occasionally at home. Patient denies any active smoking in the past. Patient's current active and shoe appears to be pneumonia as she is on methotrexate and hydroxychloroquine. Will admit patient to med/telemetry for acute hypoxic respiratory failure secondary to atypical versus gram-negative hyun pneumonia. Will broaden antibiotics to cover Pseudomonas due to immunosuppression. She is currently on 2 L nasal cannula. Wheezing also appears to be positional. Discussed with surgeon on-call regarding thyroid mass. Recommends that patient undergo FNA again, but ultimately patient may need removal of the thyroid mass, likely in the outpatient setting. Will continue to treat the active infection at this time. Patient and family were made aware of CT findings and agreeable to undergo biopsy. In the meantime, we will follow-up with blood cultures and place patient on breathing treatments as needed for shortness of breath.
[2025-05-07] MEDS: INSULIN LISPRO (AdmeLOG) 1 UNIT/0.01 ML UNIT SC (18:03)
[2025-05-07] MEDS: CEFEPIME INJ 2 GM in SODIUM CHLORIDE 0.9% (Popper) 50 ML IV (18:06)
[2025-05-07] MEDS: HEPARIN SOD INJ 5000 UNIT/ML VIAL SC (21:46)
[2025-05-08] VITALS (10 sets, daily range): BP systolic 105–131; BP diastolic 52–61; PULSE 63–97; RESP 14–23; TEMP 36.1–36.6; O2SAT 92–99
[2025-05-08] MEDS: ALBUTEROL/IPRATROPIUM (Duoneb) RT SOL 3 ML NEBU INH ×4 (00:06→18:25)
[2025-05-08] MEDS: INSULIN LISPRO (AdmeLOG) 1 UNIT/0.01 ML UNIT SC ×2 (00:19→16:56)
[2025-05-08 05:58] LABS: Basophils % (Auto) 0 % (0-2.5); Eosinophils % (Auto) 0 % (0-10); Hematocrit 37.6 % (36.0-46.0); Immature Granulocytes % (Auto) 0 % (0-0); Immature Granulocytes Auto 0.02 Thou/mm3 (0.00-0.00); Lymphocytes # (Auto) 1.3 Thou/mm3 (1.0-4.8); Lymphocytes % (Auto) 19 % (10-50); Mean Corpuscular HGB Conc 34.6 g/dl (31.0-37.0); Mean Corpuscular Hemoglobin 32.6 pg (25.0-35.0); Mean Corpuscular Volume 94 fL (80-100); Monocytes # (Auto) 0.7 Thou/mm3 (0.0-0.8); Monocytes % (Auto) 11 % (0-12); Neutrophils # (Auto) 4.9 Thou/mm3 (1.8-7.7); Neutrophils % (Auto) 70 % (37-80); Nucleated Red Blood Cell % 0 /100 WBC (0); Platelet Count 186 Thou/mm3 (140-440); RDW Standard Deviation 48.5 fL (36.4-46.3); Red Blood Count 3.99 Miln/mm3 (4.00-5.20)
[2025-05-08 06:10] LABS: INR 1.1 (0.9-1.3); Partial Thromboplastin Time 23.7 Seconds (22.0-36.0); Prothrombin Time 11.7 Seconds (9.0-12.2)
[2025-05-08 06:39] LABS: Alanine Aminotransferase 24 U/L (10-49); Albumin, Serum 3.9 gm/dL (3.4-4.8); Albumin/Globulin Ratio 1.6 (1.2-2.2); Alkaline Phosphatase 69 U/L (46-116); Anion Gap 8 (7-16); Aspartate Amino Transferase 28 U/L (0-34); BUN/Creatinine Ratio 28 Ratio (12-20); Bilirubin,Total 0.3 mg/dL (0.3-1.2); Blood Urea Nitrogen 22 mg/dL (9-23); Calcium (Corrected) 9.1 mg/dL (8.5-10.1); Carbon Dioxide 31.9 mMol/L (20.0-31.0); Chloride 99 mMol/L (98-107); Creatinine (Component) 0.8 mg/dL (0.6-1.3); Estimated Creatinine Clearance 41.7 mL/min (>60); Free T4 (Free Thyroxine) 1.05 ng/dL (0.89-1.76); Globulin 2.4 gm/dL (2.3-3.5); Glucose 158 mg/dL (74-106); Magnesium 2.1 mg/dL (1.6-2.6); Osmolality,Calculated 283 (275-295); Phosphorous 3.3 mg/dL (2.4-5.1); Potassium 4.9 mMol/L (3.4-5.1); Sodium 139 mMol/L (136-145); Thyroid Stimulating Hormone 1.27 uIU/mL (0.55-4.78); Total Protein 6.3 gm/dL (5.7-8.2); eGFR > 60 See Note
[2025-05-08] MEDS: AZITHROMYCIN INJ 500 MG in SODIUM CHLORIDE 0.9% 250 ML 250 ML 250 MG IV (08:22)
[2025-05-08] MEDS: CEFEPIME INJ 2 GM in SODIUM CHLORIDE 0.9% (Popper) 50 ML IV ×2 (08:22→20:57)
--- NOTE | 2025-05-08 11:00 | XR_ITS ---
Examination: Ultrasound-guided fine needle percutaneous aspiration thyroid nodule, left thyroid. Thyroid sonography, limited Exam date and time: hours INDICATIONS: CT chest May 07, 2025 marked left thyromegaly with large thyroid nodules Technique: A timeout was completed verifying correct patient, procedure, site, positioning and special equipment if applicable. The patient was placed in supine position for the thyroid fine needle percutaneous aspiration The patient's left neck was prepped and draped in sterile fashion. Maximum barrier sterile technique, hand hygiene, ultrasound sterile technique. 1% lidocaine was used to anesthetize the skin and subcutaneous tissues to the patient's right thyroid nodule. Multiple fine needle aspirations were performed and multiple thyroid specimens placed in preservative according to the irm protocol. Specimens appears satisfactory. The attending radiologist was present for the entire procedure. Estimated blood loss 3 cc. The patient tolerated the procedure well and there were no complications. Impression: Successful ultrasound-guided fine-needle percutaneous aspiration thyroid nodule, left thyroid cystic solid nodule measuring at least 5 cm.
[2025-05-08 12:30] LABS: Cocci Serology, IgM Negative (Negative)
--- NOTE | 2025-05-08 15:24 | ESPR_ITS ---
<Statement entered by Cristian Cantor MD - 05/09/25 07:17> I discussed with and supervised the general internal medicine doctor physician involved in the care of this patient. Patient assessment and plan was discussed with entire medicine team, including my attending. I agree with the assessment and plan as documented by general internal medicine doctor doctor. Patient care was discussed with my attending physician Dr. Justus Cantor, PGY-2 Documentation for date of: 05/08/25 Subjective Subjective Interval history: No acute overnight events. Complaining of constipation, otherwise denies fever, chills, headaches, chest pain, sob, cough, GI or urinary symptoms. Continued n.p.o. for FNA of thyroid nodule today. Continue need for oxygen, desatting on 2L oxygen. Maintaining good saturation on 3L currently. Exam Vital Signs Temp Pulse Resp BP Pulse Ox O2 Del Method O2 Flow Rate 97.4 F 97 16 105/52 L 96 Nasal Cannula 3 05/08/25 12:00 05/08/25 12:00 05/08/25 12:00 05/08/25 12:00 05/08/25 12:00 05/08/25 12:00 05/08/25 12:00 Narrative Exam Constitutional: well-developed, well-nourished, in no acute distress, lying in bed HEENT: NCAT, EOMI, reactive round pupils b/l, left thyroid nodule noted, patent nares b/l, moist mucous membranes Lung: audible stridors, CTAB, no wheezing, no rhonchi Heart: Regular S1S2, no murmurs, gallops, or rubs Abdomen: Soft, non-distended, non-tender, bowel sounds present throughout Extremities: No cyanosis, clubbing, or edema, LE pulses present b/l Neurologic: No focal sensory or motor deficits noted, AOx3, appropriate affect Skin: Warm, dry, no lesions or rashes noted Objective Labs 05/09/25 05:04 05/09/25 05:04 Labs: Laboratory Results - last 24 hr 05/08/25 05:03 WBC 7.0 RBC 3.99 L Hgb 13.0 Hct 37.6 MCV 94 MCH 32.6 MCHC 34.6 RDW Std Deviation 48.5 H Plt Count 186 Neut % (Auto) 70 Lymph % (Auto) 19 [place] % (Auto) 11 Eos % (Auto) 0 Baso % (Auto) 0 Neut # (Auto) 4.9 Lymph # (Auto) 1.3 [place] # (Auto) 0.7 Eos # (Auto) 0.0 Baso # (Auto) 0.0 Immature Gran # (Auto) 0.02 H Absolute Nucleated RBC 0.00 Immature Gran % 0 Nucleated RBC % 0 PT 11.7 INR 1.1 APTT 23.7 Sodium 139 Potassium 4.9 D Chloride 99 Carbon Dioxide 31.9 H Anion Gap 8 BUN 22 Creatinine 0.8 Estim Creat Clear Calc 41.7 L eGFR > 60 BUN/Creatinine Ratio 28 H Glucose 158 H D Calculated Osmolality 283 Calcium 9.0 Corrected Calcium 9.1 Phosphorus 3.3 Magnesium 2.1 Total Bilirubin 0.3 AST 28 ALT 24 Alkaline Phosphatase 69 Total Protein 6.3 Albumin 3.9 Globulin 2.4 Albumin/Globulin Ratio 1.6 TSH 1.27 Free T4 1.05 Coccidioides IgM Ab Negative Quality Measures Quality Measures none Advance care planning discussed with:: patient Assessment & Plan Assessment Current Active Medications: Generic Name Dose Route Start Last Admin Trade Name Freq PRN Reason Stop Dose Admin Acetaminophen 650 mg 05/07/25 08:57 Acetaminophen 325 Mg Tablet PO 06/06/25 08:56 Q6H PRN Fever >101.5 Albuterol/Ipratropium 3 ml 05/07/25 13:00 05/08/25 10:32 Albuterol/Ipratropium (Duoneb) Rt Alice 3 Ml Nebu INH 06/06/25 12:59 3 ml Q6HRRT NATALY Administration Amlodipine Besylate 5 mg 05/08/25 09:00 05/08/25 07:46 Amlodipine Besylate 5 Mg Tablet PO 06/07/25 08:59 Not Given DAILY NATALY Bisacodyl 5 mg 05/08/25 10:00 05/08/25 11:53 Bisacodyl 5 Mg Tabec PO 06/07/25 09:59 Not Given QDAY NATALY Protocol Dextrose 25 ml 05/07/25 17:21 Dextrose 50%-Water Inj 50 Ml Syringe IV 06/06/25 17:20 Q15MIN PRN BG 50-70 responsive npo pt Dextrose 50 ml 05/07/25 17:21 Dextrose 50%-Water Inj 50 Ml Syringe IV 06/06/25 17:20 Q15MIN PRN BG <50 OR BG <70 & pt unresponsive Glucagon 1 mg 05/07/25 17:21 Glucagon Inj 1 Mg Vial IM Q15MIN PRN BG <70, and no IV access Heparin Sodium (Porcine) 5,000 unit 05/07/25 14:00 05/08/25 11:53 Heparin Sod Inj 5000 Unit/Ml Vial SC 05/21/25 13:59 Not Given Q8HR NATALY Azithromycin 500 mg/ Sodium 250 mls @ 250 mls/hr 05/08/25 09:00 05/08/25 08:22 Chloride IV 05/15/25 08:59 250 mls/hr QDAY NATALY Administration Cefepime HCl 2 gm/ Sodium 50 mls @ 100 mls/hr 05/07/25 17:27 05/08/25 08:22 Chloride IV 05/14/25 17:26 100 mls/hr Q12HR NATALY Administration Ibuprofen 600 mg 05/07/25 08:57 Ibuprofen Tab 600 Mg Tablet PO 06/06/25 08:56 Q6H PRN PAIN Insulin Human Lispro 0 unit 05/07/25 18:00 05/08/25 11:56 Insulin Lispro (Admelog) 1 Unit/0.01 Ml Unit SC 06/06/25 17:59 Not Given Q6HR [facility] Protocol Loratadine 10 mg 05/08/25 09:00 05/08/25 07:47 Loratadine 10 Mg Tablet PO 06/07/25 08:59 Not Given DAILY [facility] Metoclopramide HCl 10 mg 05/07/25 08:57 Metoclopramide 5 Mg Tablet PO 06/06/25 08:56 Q6H PRN NAUSEA OR VOMITING Metoprolol Succinate 25 mg 05/08/25 09:00 05/08/25 07:47 Metoprolol Succinate Xl 25 Mg Tabcr PO 06/07/25 08:59 Not Given DAILY NATALY Polyethylene Glycol 17 gm 05/08/25 10:15 05/08/25 11:53 Polyethylene Glycol 17 Gm Packet PO 06/07/25 10:14 Not Given QDAY NATALY Sodium Chloride 3 ml 05/07/25 05:38 Sodium Chloride Rt Alice 0.9% 3 Ml Nebu INH 06/06/25 05:37 PRN PRN SOLN Plan 80-year-old female PMHx of HTN, HLD, T2DM, rheumatoid arthritis on DMARDS, 5.7 cm thyroid nodule, presenting with acute SOB and sore throat and cough/chills x 1 week. Admitted for pneumonia and workup for thyroid nodule. AHRF 2/2 Community acquired pneumonia Immunocompromised Presented with chills, cough and SOB for x1 week CXR indicative of right lobe PNA Patient immunocompromised due to DMARD's for RA ? DuoNebs q.6h. ? Continue CEFEPIME (05/08 to present) ? Continue AZITHROMYCIN (05/08 to present) ? Pending panculture, cocci IgM/IgG Left middle thyroid nodule Speculated lung nodule Patient with 5.7 cm left middle lobe thyroid nodule 2021 FNA resulted non-diagnostic due to sample Patient complaining of intermittent dysphagia Chest CT indicated: Marked left thyromegaly with left thyroid nodules extending retrosternal displacing the trachea to the right CXR and chest CT also show 13mm spiculated nodule of right middle lobe, concern for malignancy TSH 1.27, free T41.05. ? IR guided FNA scheduled today, will consider biopsy if indicated Rheumatoid arthritis on DMARDS ? Holding home METHOTREXATE and HYDROXYCHLOROQUINE in settings of pneumonia HTN BP on softer side. ? Continue MIDODRINE 5 mg daily ? Continue home METOPROLOL 25 mg daily T2DM ? INSULIN sliding scale ? Accu-Cheks Constipation ? Started MIRALAX and COLACE Health maintenance Diet: CHO consistent GI prophylaxis: Not indicated DVT prophylaxis: HEPARIN subcu Antibiotics: CEFEPIME, AZITHROMYCIN CODE STATUS: Full code Disposition: Admitted for pneumonia and IV ANTIBIOTICS, pending cultures and thyroid FNA results. Case was discussed with attending physician and senior resident. Pino Jiménez DO PGYI This document was transcribed using voice recognition technology. Minor inaccuracies may be present. Attending Provider Attestation/Addendum [place], Latoya Jerome DO, attest that I was physically present for the yoon portions of the service and evaluated the patient with the resident and I reviewed and discussed the case with the resident and agree with the resident's findings and plans of care as documented above Patient seen and evaluated this Am. She remains on 2L/NC with upper airway wheezing due to thyromegaly. Patient in no respiratory distress. Pending thyroid bx today. Will continue with breathing treatments and titrate O2 as tolerated. Continue with IV abx at this time. F/u with bcx. Patient has been afebrile and denies any chills, chest pain, abdominal pain, dysuria, productive sputum.
--- NOTE | 2025-05-08 16:06 | PC.SS ---
Initial assessment: patient is a 80-year old female admitted for SOB. Patient is Tajik speaking. Patient is alert and oriented. Patient's son at bed side. Patient able to confirm demographic information. Patient resides at home with spouse and family. Patient informs she ambulates at home utilizing a cane. Patient denies having home oxygen. Patient informs PCP is Dr. Chavez at [facility]. Patient informs that they would like to return home upon discharge. Family is able to transport home. If home 02 is needed, the patient does not have a preferred DME vendor. In case of an emergency, patient's son Kit Stephens to be contacted. D/c plan: home Next of kin: SonKit
--- NOTE | 2025-05-08 16:15 | PC.SS ---
Rounding note: patient is pending FNA of thyroid nodule. D/c plan is to return home.
[2025-05-08] MEDS: HEPARIN SOD INJ 5000 UNIT/ML VIAL SC (21:08)
[2025-05-09] VITALS (12 sets, daily range): BP systolic 99–144; BP diastolic 52–76; PULSE 65–106; RESP 16–28; TEMP 36.1–36.5; O2SAT 94–100; BMI 18.6
[2025-05-09] MEDS: ALBUTEROL/IPRATROPIUM (Duoneb) RT SOL 3 ML NEBU INH ×4 (00:45→18:07)
[2025-05-09 05:22] LABS: Basophils % (Auto) 0 % (0-2.5); Eosinophils # (Auto) 0.1 Thou/mm3 (0.0-0.5); Eosinophils % (Auto) 1 % (0-10); Hematocrit 42.8 % (36.0-46.0); Hemoglobin 13.3 g/dL (12.0-16.0); Immature Granulocytes % (Auto) 1 % (0-0); Immature Granulocytes Auto 0.04 Thou/mm3 (0.00-0.00); Lymphocytes # (Auto) 1.4 Thou/mm3 (1.0-4.8); Lymphocytes % (Auto) 19 % (10-50); Mean Corpuscular HGB Conc 31.1 g/dl (31.0-37.0); Mean Corpuscular Hemoglobin 30.9 pg (25.0-35.0); Mean Corpuscular Volume 100 fL (80-100); Monocytes # (Auto) 0.7 Thou/mm3 (0.0-0.8); Monocytes % (Auto) 9 % (0-12); Neutrophils # (Auto) 5.5 Thou/mm3 (1.8-7.7); Neutrophils % (Auto) 71 % (37-80); Nucleated Red Blood Cell % 0 /100 WBC (0); Platelet Count 161 Thou/mm3 (140-440); RDW Standard Deviation 52.3 fL (36.4-46.3); White Blood Count 7.7 Thou/mm3 (3.6-11.0)
[2025-05-09 05:43] LABS: Alanine Aminotransferase 25 U/L (10-49); Albumin, Serum 4.2 gm/dL (3.4-4.8); Albumin/Globulin Ratio 1.8 (1.2-2.2); Alkaline Phosphatase 68 U/L (46-116); Anion Gap 7 (7-16); Aspartate Amino Transferase 30 U/L (0-34); BUN/Creatinine Ratio 23 Ratio (12-20); Bilirubin,Total 0.4 mg/dL (0.3-1.2); Blood Urea Nitrogen 16 mg/dL (9-23); Calcium 9.6 mg/dL (8.3-10.6); Calcium (Corrected) 9.6 mg/dL (8.5-10.1); Chloride 99 mMol/L (98-107); Creatinine (Component) 0.7 mg/dL (0.6-1.3); Estimated Creatinine Clearance 47.7 mL/min (>60); Globulin 2.4 gm/dL (2.3-3.5); Glucose 139 mg/dL (74-106); Osmolality,Calculated 284 (275-295); Potassium 4.8 mMol/L (3.4-5.1); Sodium 141 mMol/L (136-145); Total Protein 6.6 gm/dL (5.7-8.2); eGFR > 60 See Note
--- NOTE | 2025-05-09 07:52 | ESPR_ITS ---
<Statement entered by Kiah Wynne MD - 05/09/25 16:06> I Kiah Wynne MD reviewed the note and agree with the resident's assessment & plan with exceptions as below. I have personally reviewed labs, imaging, home meds/prior records, examined the patient, formulated and discussed management plan with the IM team. A 80-year-old F with Hx of RA, DM, HTN, thyroid lesion, adrenal mass and spiculated lung nodule admitted for acute hypoxemic respiratory failure secondary to community-acquired pneumonia. Thyroid lesion biopsy pathology is pending, continue azithromycin and Rocephin empirically for postobstructive pneumonia. Consult oncology for further evaluation and management guidelines regarding multiple lesions concerning for malignancy. Documentation for date of: 05/09/25 Subjective Subjective Interval history: No acute overnight events. Per nurse, she was desatting to mid 80s overnight while ambulating to the restroom. Continued on 2 L 3 L NS, satting low 90s. Denies fever, chills, headaches, chest pain, sob, cough, GI or urinary symptoms. Exam Vital Signs Temp Pulse Resp BP Pulse Ox O2 Del Method O2 Flow Rate 97.7 F 80 28 H 144/60 H 100 Nasal Cannula 4 05/09/25 04:00 05/09/25 06:27 05/09/25 06:27 05/09/25 04:00 05/09/25 06:27 05/09/25 04:00 05/09/25 06:27 Narrative Exam Constitutional: well-developed, well-nourished, in no acute distress, lying in bed HEENT: NCAT, EOMI, reactive round pupils b/l, left thyromegaly noted, patent nares b/l, moist mucous membranes Lung: audible stridors, CTAB, no wheezing, no rhonchi Heart: Regular S1S2, mild systolic murmurs, gallops, or rubs Abdomen: Soft, non-distended, non-tender, bowel sounds present throughout Extremities: No cyanosis, clubbing, or edema, LE pulses present b/l Neurologic: No focal sensory or motor deficits noted, AOx3, appropriate affect Skin: Warm, dry, no lesions or rashes noted Objective Labs 05/09/25 05:04 05/09/25 05:04 Labs: Laboratory Results - last 24 hr 05/08/25 05/09/25 05:03 05:04 WBC 7.7 RBC 4.30 Hgb 13.3 Hct 42.8 MCV 100 MCH 30.9 MCHC 31.1 RDW Std Deviation 52.3 H Plt Count 161 Neut % (Auto) 71 Lymph % (Auto) 19 [place] % (Auto) 9 Eos % (Auto) 1 Baso % (Auto) 0 Neut # (Auto) 5.5 Lymph # (Auto) 1.4 [place] # (Auto) 0.7 Eos # (Auto) 0.1 Baso # (Auto) 0.0 Immature Gran # (Auto) 0.04 H Absolute Nucleated RBC 0.00 Immature Gran % 1 H Nucleated RBC % 0 Sodium 141 Potassium 4.8 Chloride 99 Carbon Dioxide 35.0 H Anion Gap 7 BUN 16 Creatinine 0.7 Estim Creat Clear Calc 47.7 L eGFR > 60 BUN/Creatinine Ratio 23 H Glucose 139 H Calculated Osmolality 284 Calcium 9.6 Corrected Calcium 9.6 Phosphorus 3.0 Magnesium 2.0 Total Bilirubin 0.4 AST 30 ALT 25 Alkaline Phosphatase 68 Total Protein 6.6 Albumin 4.2 Globulin 2.4 Albumin/Globulin Ratio 1.8 Coccidioides IgM Ab Negative Quality Measures Quality Measures none Advance care planning discussed with:: patient Assessment & Plan Assessment Current Active Medications: Generic Name Dose Route Start Last Admin Trade Name Freq PRN Reason Stop Dose Admin Acetaminophen 650 mg 05/07/25 08:57 Acetaminophen 325 Mg Tablet PO 06/06/25 08:56 Q6H PRN Fever >101.5 Albuterol/Ipratropium 3 ml 05/07/25 13:00 05/09/25 06:26 Albuterol/Ipratropium (Duoneb) Rt Alice 3 Ml Nebu INH 06/06/25 12:59 3 ml Q6HRRT NATALY Administration Amlodipine Besylate 5 mg 05/08/25 09:00 05/08/25 07:46 Amlodipine Besylate 5 Mg Tablet PO 06/07/25 08:59 Not Given DAILY NATALY Bisacodyl 5 mg 05/08/25 10:00 05/08/25 11:53 Bisacodyl 5 Mg Tabec PO 06/07/25 09:59 Not Given QDAY NATALY Protocol Dextrose 25 ml 05/07/25 17:21 Dextrose 50%-Water Inj 50 Ml Syringe IV 06/06/25 17:20 Q15MIN PRN BG 50-70 responsive npo pt Dextrose 50 ml 05/07/25 17:21 Dextrose 50%-Water Inj 50 Ml Syringe IV 06/06/25 17:20 Q15MIN PRN BG <50 OR BG <70 & pt unresponsive Glucagon 1 mg 05/07/25 17:21 Glucagon Inj 1 Mg Vial IM Q15MIN PRN BG <70, and no IV access Heparin Sodium (Porcine) 5,000 unit 05/07/25 14:00 05/09/25 06:24 Heparin Sod Inj 5000 Unit/Ml Vial SC 05/21/25 13:59 Not Given Q8HR NATALY Azithromycin 500 mg/ Sodium 250 mls @ 250 mls/hr 05/08/25 09:00 05/08/25 08:22 Chloride IV 05/15/25 08:59 250 mls/hr QDAY NATALY Administration Cefepime HCl 2 gm/ Sodium 50 mls @ 100 mls/hr 05/07/25 17:27 05/08/25 20:57 Chloride IV 05/14/25 17:26 100 mls/hr Q12HR NATALY Administration Ibuprofen 600 mg 05/07/25 08:57 Ibuprofen Tab 600 Mg Tablet PO 06/06/25 08:56 Q6H PRN PAIN Insulin Human Lispro 0 unit 05/08/25 17:00 05/09/25 07:43 Insulin Lispro (Admelog) 1 Unit/0.01 Ml Unit SC 06/07/25 16:59 Not Given ACHS [facility] Protocol Loratadine 10 mg 05/08/25 09:00 05/08/25 07:47 Loratadine 10 Mg Tablet PO 06/07/25 08:59 Not Given DAILY [facility] Metoclopramide HCl 10 mg 05/07/25 08:57 Metoclopramide 5 Mg Tablet PO 06/06/25 08:56 Q6H PRN NAUSEA OR VOMITING Metoprolol Succinate 25 mg 05/08/25 09:00 05/08/25 07:47 Metoprolol Succinate Xl 25 Mg Tabcr PO 06/07/25 08:59 Not Given DAILY [facility] Polyethylene Glycol 17 gm 05/08/25 10:15 05/08/25 11:53 Polyethylene Glycol 17 Gm Packet PO 06/07/25 10:14 Not Given QDAY [facility] Sodium Chloride 3 ml 05/07/25 05:38 Sodium Chloride Rt Alice 0.9% 3 Ml Nebu INH 06/06/25 05:37 PRN PRN SOLN Plan 80-year-old female PMHx of HTN, HLD, T2DM, rheumatoid arthritis on DMARDS, 5.7 cm thyroid nodule, presenting with acute SOB and sore throat and cough/chills x 1 week. Admitted for pneumonia and workup for thyroid nodule and speculated lung mass. Appreciate recommendations from oncology team. BP 144/60 before meds RR 20, satting 1% on 4 L CBC and CMP unremarkable 48H blood culture negative Cocci IgM negative Pending 6-minute walk test and PT eval AHRF 2/2 Community acquired pneumonia Immunocompromised Presented with chills, cough and SOB for x1 week CXR indicative of right lobe PNA Patient immunocompromised due to DMARD's for RA Negative cocci IgM. Continue requiring oxygen, desatting significantly on ambulation. ? DuoNebs q.6h. ? Continue incentive spirometry ? Physical therapy ? Continue CEFEPIME (05/08 to present) ? Continue AZITHROMYCIN (05/08 to present) ? Pending panculture, cocci IgM/IgG Left middle thyroid nodule Speculated lung nodule Patient with 5.7 cm left middle lobe thyroid nodule 2021 FNA resulted non-diagnostic due to sample Patient complaining of intermittent dysphagia Chest CT indicated: Marked left thyromegaly with left thyroid nodules extending retrosternal displacing the trachea to the right CXR and chest CT also show 13mm spiculated nodule of right middle lobe, concern for malignancy TSH 1.27, free T41.05. IR guided FNA was done yesterday, pending pathology report. ? Oncology on board ? Pending CT abdominal pelvis rule out malignancy/mets, rule out ventral hernia Rheumatoid arthritis on DMARDS ? Holding home METHOTREXATE and HYDROXYCHLOROQUINE in settings of pneumonia HTN BP on softer side. ? Continue AMLODIPINE 5 mg daily ? Continue home METOPROLOL 25 mg daily T2DM ? INSULIN sliding scale ? Accu-Cheks Constipation ? Started MIRALAX and COLACE Health maintenance Diet: CHO consistent GI prophylaxis: Not indicated DVT prophylaxis: HEPARIN subcu Antibiotics: CEFEPIME, AZITHROMYCIN CODE STATUS: Full code Disposition: Admitted for pneumonia and IV ANTIBIOTICS, pending cultures and thyroid FNA results. Case was discussed with attending physician and senior resident. Pino Jiménez DO PGYI This document was transcribed using voice recognition technology. Minor inaccuracies may be present.
[2025-05-09] MEDS: POLYETHYLENE GLYCOL 17 GM PACKET PO (08:29)
[2025-05-09] MEDS: AZITHROMYCIN INJ 500 MG in SODIUM CHLORIDE 0.9% 250 ML 250 ML 250 MG IV (08:29)
[2025-05-09] MEDS: lorataDINE 10 MG TABLET PO (08:30)
[2025-05-09] MEDS: bisacodyL 5 MG TABEC PO (08:30)
[2025-05-09] MEDS: METOPROLOL SUCCINATE XL 25 MG TABCR PO (08:30)
[2025-05-09] MEDS: CEFEPIME INJ 2 GM in SODIUM CHLORIDE 0.9% (Popper) 50 ML IV ×2 (08:30→20:55)
[2025-05-09] MEDS: ACETAMINOPHEN 325 MG TABLET 650 MG PO (08:38)
--- NOTE | 2025-05-09 09:30 | PC.NURSE ---
pt on 4L at rest sating 94%. Pt on 4L ambulating sating 84%. Pt at rest on RA sating 84% not able to tolerate ambulation without oxygen.
--- NOTE | 2025-05-09 10:42 | PC.SS ---
Addendum entered by Kathryn Patel 05/09/25 16:41: SS went in to speak with patient and family. They do not have a home set up for 02. SS explained we need to look at SNF until they get the home situated with electrical changes. Patient agreeable. She states her preference is [facility] rehab. [facility] can accept patient tomorrow [place] Addendum entered by Kathryn Patel 05/09/25 14:39: follow up note: Patient has 02 delivered to room. Patient pending Dr. Evans consult. Nodules were found. Patient may need HH services as well. Possible dc 1-2 days home. Original Note: Patient needs new 02 and will d/c home today. SS submitted orders to [facility] for review and delivery.
[2025-05-09] MEDS: INSULIN LISPRO (AdmeLOG) 1 UNIT/0.01 ML UNIT SC ×3 (11:31→20:54)
[2025-05-09 12:13] LABS: Cocci Serology, IgG Negative (Negative)
--- NOTE | 2025-05-09 13:25 | PC.PT ---
Attempt to initiate PT evaluation this morning. Upon approached, patient ambulates to the restroom without AD with Staff Supervision. Patient were able to ambulate back to bed. Patient states she has cane at home and she ambulates with Cane prn. Will cancel PT evaluation. Patient is I with transfers and S with ambulation without AD.
--- NOTE | 2025-05-09 13:41 | XR_ITS ---
Examination: CT abdomen and pelvis without contrast. Coronal 3-D reconstructions. Sagittal 2-D reconstructions. Date and time of exam:May 09, 2025 1553 hours INDICATIONS: Generalized abdominal pain and palpable abdominal mass today, clinical diagnosis hernia defect CTDI: vol (mGy): 16. DLP: (mGycm): 926. Technique: Axial images of the abdomen have been obtained, 3 mm slice thickness Intravenous contrast material has not been administered. Low dose protocols were performed. One or more of the following dose reduction techniques were used; automated exposure control, adjustment of the mA and/or KV according to patient size, use of iterative reconstruction technique. Findings: Atelectasis in the left lower lung zone Mild enlargement cardiac contour, trace pericardial thickening Fatty infiltration throughout the liver Gallbladder is not visualized Common hepatic duct 11 mm Spleen not enlarged No pancreatic or adrenal mass No renal or ureteral calculi, no hydronephrosis 21 mm fat-containing umbilical hernia Normal appendix, coronal image 85 No bowel obstruction Urinary bladder intact with mild wall thickening up to 5 mm Absent uterus No pelvic mass Prominent osteopenia Advanced cyst posteriorly L5-S1, moderate narrowing hip joints. Impression: Mild enlargement common bile duct and common hepatic duct, consider hepatobiliary sonography follow up 21 mm fat-containing umbilical hernia No inguinal or common femoral hernia Normal appendix Mild thickening urinary bladder wall, differential would include cystitis, clinical correlation advised
--- NOTE | 2025-05-09 14:41 | PD.ONCCONS ---
HPI Data of Consult Consult date: 05/09/25 Requesting Physician: Kiah Wynne MD Primary Care Provider: Tay Chavez MD Consult Narrative Reason for consult: Suspected thyroid malignancy with mets History of present illness: 80-year-old lady from [place] who reportedly had [employer] cancer surgery x 2 many years ago admitted with shortness of breath pneumonia and thyromegaly. Chest CT on admission revealed marked left thyromegaly with substernal extension and left thyroid nodules. There are small precarinal lymph nodes as well as 13 mm spiculated nodule right middle lobe possible lung CA. Enlarged thyroid displaced trachea to the right. It is noted that patient had thyromegaly for several years and in fact underwent a biopsy result not available . CBC admission 7.0 WBC hemoglobin 13.0 platelets 1 86,000. CMP showed elevated glucose, unremarkable EGFR and LFTs. Ultrasound-guided biopsy was performed yesterday. Due to recent fall patient also had MRI of the sacrum which showed mild to moderate sacroiliitis. Patient now referred for oncological consultation. Patient reportedly had gynecological cancer x 2 in [place] 20 [address] of the abdomen pelvis shows absent uterus and septated right adnexal cyst. cc:: cc: Kiah Wynne MD Past Medical History Social History SOCIAL: Citizen Of [place]-speaking denies drinking smoking Past Medical History Comments PMH COMMENT: Patient reportedly had gynecological cancer surgery x 20 to 25 years ago. No adjuvant therapy was felt to be necessary. Hypertension diabetes mellitus 2 rheumatoid arthritis Meds Home Medications and Allergies Home Medications ?Medication ?Instructions ?Recorded ?Confirmed ?Type insulin glargine 100 unit/mL (3 60 unit subcut QAM 02/10/22 05/07/25 History mL) subcutaneous pen (Basaglar KwikPen U-100 Insulin) metformin 1,000 mg tablet 1,000 mg PO BID 02/10/22 05/07/25 History methotrexate sodium 2.5 mg tablet 2.5 mg PO QWEEK 02/10/22 05/07/25 History sitagliptin phosphate 100 mg 100 mg PO QDAY 02/10/22 05/07/25 History tablet (Januvia) amlodipine 5 mg tablet 5 mg PO DAILY 05/07/25 05/07/25 History diclofenac sodium 50 mg 50 mg PO BID PRN pain 05/07/25 05/07/25 History tablet,delayed release hydroxychloroquine 200 mg tablet 200 mg PO DAILY 05/07/25 05/07/25 History loratadine 10 mg tablet 10 mg PO DAILY 05/07/25 05/07/25 History metoprolol succinate 25 mg 25 mg PO DAILY 05/07/25 05/07/25 History tablet,extended release 24 hr Allergies Allergy/AdvReac Type Severity Reaction Status Date / Time No Known Allergies Allergy Verified 05/06/25 16:05 Exam Vital Signs Temp Pulse Resp BP Pulse Ox O2 Del Method O2 Flow Rate 97.3 F 75 18 124/57 L 100 Nasal Cannula 4 05/09/25 12:00 05/09/25 12:57 05/09/25 12:57 05/09/25 12:00 05/09/25 12:57 05/09/25 08:00 05/09/25 12:57 Narrative Exam Appearing comfortable receiving O2. Results Labs 05/09/25 05:04 05/09/25 05:04 Labs: Short CBC 05/09/25 Range/Units 05:04 WBC 7.7 (3.6-11.0) Thou/mm3 Hgb 13.3 (12.0-16.0) g/dL Hct 42.8 (36.0-46.0) % Plt Count 161 (140-440) Thou/mm3 BMP 05/09/25 05:04 Sodium 141 Potassium 4.8 Chloride 99 Carbon Dioxide 35.0 H BUN 16 Creatinine 0.7 Glucose 139 H Calcium 9.6 Liver Function 05/09/25 Range/Units 05:04 Total Bilirubin 0.4 (0.3-1.2) mg/dL AST 30 (0-34) U/L ALT 25 (10-49) U/L Alkaline Phosphatase 68 (46-116) U/L Albumin 4.2 (3.4-4.8) gm/dL Assessment and Plan Additional Assessment & Plan Additional Plan: 1. Admitted with right lobe pneumonia improving with supportive care. 2. Marked thyromegaly noted on previous imaging studies 3 years ago, FNA done and results not available, repeated again yesterday. 3. The pathology will be read by an outside [employer] testing which can take weeks for the final diagnosis. 4. Patient reportedly had 2 gynecological surgeries over 20 years ago in [place] and patient has absent uterus. 5. Recommend abdomen/pelvis CT along with tumor markers CA 125 CA 19?9 CEA CA 27.29 6. 13 mm right middle lobe, not ideal for lung biopsy according to Dr. Torres. Will check the results of abdomen pelvis CT. 7. Thank you for allowing me to evaluate this patient. Will follow.
--- NOTE | 2025-05-09 15:15 | PC.NURSE ---
Per pt and family home is not safe for oxygen use dr Jiménez aware. Orders entered for social security assessor for possible resources SNF vs HH. and physical therapy for evaluation for home devices like a walker.
[2025-05-09] MEDS: HEPARIN SOD INJ 5000 UNIT/ML VIAL SC ×2 (16:52→20:53)
[2025-05-10] VITALS (12 sets, daily range): BP systolic 108–153; BP diastolic 55–80; PULSE 66–92; RESP 17–24; TEMP 36.4–36.8; O2SAT 92–100; BMI 18.6; BMI 18.8
[2025-05-10] MEDS: ALBUTEROL/IPRATROPIUM (Duoneb) RT SOL 3 ML NEBU INH ×4 (00:51→18:16)
[2025-05-10] MEDS: HEPARIN SOD INJ 5000 UNIT/ML VIAL SC ×3 (05:31→21:04)
[2025-05-10 06:40] LABS: Basophils # (Auto) 0.1 Thou/mm3 (0.0-0.2); Basophils % (Auto) 1 % (0-2.5); Eosinophils # (Auto) 0.1 Thou/mm3 (0.0-0.5); Eosinophils % (Auto) 1 % (0-10); Hematocrit 41.2 % (36.0-46.0); Immature Granulocytes % (Auto) 1 % (0-0); Immature Granulocytes Auto 0.03 Thou/mm3 (0.00-0.00); Lymphocytes # (Auto) 0.8 Thou/mm3 (1.0-4.8); Lymphocytes % (Auto) 12 % (10-50); Mean Corpuscular HGB Conc 31.6 g/dl (31.0-37.0); Mean Corpuscular Hemoglobin 31.6 pg (25.0-35.0); Mean Corpuscular Volume 100 fL (80-100); Monocytes # (Auto) 0.6 Thou/mm3 (0.0-0.8); Monocytes % (Auto) 9 % (0-12); Neutrophils # (Auto) 5.1 Thou/mm3 (1.8-7.7); Neutrophils % (Auto) 77 % (37-80); Nucleated Red Blood Cell % 0 /100 WBC (0); Platelet Count 148 Thou/mm3 (140-440); RDW Standard Deviation 50.4 fL (36.4-46.3); Red Blood Count 4.12 Miln/mm3 (4.00-5.20); White Blood Count 6.6 Thou/mm3 (3.6-11.0)
[2025-05-10] MEDS: INSULIN LISPRO (AdmeLOG) 1 UNIT/0.01 ML UNIT SC ×4 (07:27→21:04)
[2025-05-10] MEDS: lorataDINE 10 MG TABLET PO (08:04)
[2025-05-10] MEDS: METOPROLOL SUCCINATE XL 25 MG TABCR PO (08:04)
[2025-05-10] MEDS: POLYETHYLENE GLYCOL 17 GM PACKET PO (08:04)
[2025-05-10] MEDS: CEFEPIME INJ 2 GM in SODIUM CHLORIDE 0.9% (Popper) 50 ML IV ×2 (08:04→21:04)
[2025-05-10] MEDS: bisacodyL 5 MG TABEC PO (08:04)
[2025-05-10] MEDS: amLODIPine BESYLATE 5 MG TABLET PO (08:04)
[2025-05-10] MEDS: AZITHROMYCIN INJ 500 MG in SODIUM CHLORIDE 0.9% 250 ML 250 ML 250 MG IV (09:57)
[2025-05-10 10:47] LABS: Alanine Aminotransferase 22 U/L (10-49); Albumin, Serum 3.8 gm/dL (3.4-4.8); Albumin/Globulin Ratio 1.4 (1.2-2.2); Alkaline Phosphatase 64 U/L (46-116); Anion Gap 3 (7-16); Aspartate Amino Transferase 25 U/L (0-34); BUN/Creatinine Ratio 15 Ratio (12-20); Bilirubin,Total 0.5 mg/dL (0.3-1.2); Blood Urea Nitrogen 9 mg/dL (9-23); Calcium (Corrected) 9.2 mg/dL (8.5-10.1); Carbon Dioxide 36.2 mMol/L (20.0-31.0); Chloride 100 mMol/L (98-107); Creatinine (Component) 0.6 mg/dL (0.6-1.3); Estimated Creatinine Clearance 55.6 mL/min (>60); Globulin 2.7 gm/dL (2.3-3.5); Glucose 161 mg/dL (74-106); Magnesium 1.8 mg/dL (1.6-2.6); Osmolality,Calculated 279 (275-295); Phosphorous 2.7 mg/dL (2.4-5.1); Potassium 4.1 mMol/L (3.4-5.1); Sodium 139 mMol/L (136-145); Total Protein 6.5 gm/dL (5.7-8.2); eGFR > 60 See Note
--- NOTE | 2025-05-10 14:47 | ESPR_ITS ---
<Statement entered by Kiah Wynne MD - 05/12/25 16:34> I Kiah Wynne MD reviewed the note and agree with the resident's assessment & plan with exceptions as below. I have personally reviewed labs, imaging, home meds/prior records, examined the patient, formulated and discussed management plan with the IM team. A 80-year-old female admitted for acute hypoxemic respiratory failure secondary to community-acquired pneumonia noted to have a lung mass along with adrenal lesion and large thyroid cystic nodule for which aspiration biopsy has been obtained. Follow-up with cytology results, continue pneumonia management with cefepime and azithromycin, consult oncology and follow-up for potential management. Documentation for date of: 05/10/25 Subjective Subjective Interval history: No acute overnight events. Continued to require oxygen, currently on 2-3 L NC, satting in low 90s, but desatting with minimal exertion. Abdominal CT showed ventral hernia, but no mass. Dr. Evans, oncology, unlikely with biopsy lung mass. given the location, however will follow-up with CT abdomen and thyroid FNA. creative services coordinator is currently working on home oxygen arrangement. Patient currently does not have electrical oxygen at home. She may be going to SNF until 2 electrical issue have resolved. Exam Vital Signs Temp Pulse Resp BP Pulse Ox O2 Del Method O2 Flow Rate 98.3 F 66 20 115/55 L 98 Nasal Cannula 3 05/10/25 12:00 05/10/25 12:42 05/10/25 12:42 05/10/25 12:00 05/10/25 12:42 05/10/25 12:00 05/10/25 12:42 Narrative Exam Constitutional: well-developed, well-nourished, in no acute distress, lying in bed HEENT: NCAT, EOMI, reactive round pupils b/l, left thyromegaly noted, patent nares b/l, moist mucous membranes Lung: audible stridors, CTAB, no wheezing, no rhonchi Heart: Regular S1S2, mild systolic murmurs, gallops, or rubs Abdomen: Soft, non-distended, non-tender, bowel sounds present throughout Extremities: No cyanosis, clubbing, or edema, LE pulses present b/l Neurologic: No focal sensory or motor deficits noted, AOx3, appropriate affect Skin: Warm, dry, no lesions or rashes noted Objective Labs 05/10/25 05:20 05/10/25 09:40 Labs: Laboratory Results - last 24 hr 05/10/25 05/10/25 05:20 09:40 WBC 6.6 RBC 4.12 Hgb 13.0 Hct 41.2 MCV 100 MCH 31.6 MCHC 31.6 RDW Std Deviation 50.4 H Plt Count 148 Neut % (Auto) 77 Lymph % (Auto) 12 [place] % (Auto) 9 Eos % (Auto) 1 Baso % (Auto) 1 Neut # (Auto) 5.1 Lymph # (Auto) 0.8 L [place] # (Auto) 0.6 Eos # (Auto) 0.1 Baso # (Auto) 0.1 Immature Gran # (Auto) 0.03 H Absolute Nucleated RBC 0.00 Immature Gran % 1 H Nucleated RBC % 0 Sodium 139 Potassium 4.1 D Chloride 100 Carbon Dioxide 36.2 H Anion Gap 3 L BUN 9 Creatinine 0.6 Estim Creat Clear Calc 55.6 L eGFR > 60 BUN/Creatinine Ratio 15 Glucose 161 H Calculated Osmolality 279 Calcium 9.0 Corrected Calcium 9.2 Phosphorus 2.7 Magnesium 1.8 Total Bilirubin 0.5 AST 25 ALT 22 Alkaline Phosphatase 64 Total Protein 6.5 Albumin 3.8 Globulin 2.7 Albumin/Globulin Ratio 1.4 Quality Measures Quality Measures none Advance care planning discussed with:: patient Assessment & Plan Assessment Current Active Medications: Generic Name Dose Route Start Last Admin Trade Name Freq PRN Reason Stop Dose Admin Acetaminophen 650 mg 05/07/25 08:57 05/09/25 08:38 Acetaminophen 325 Mg Tablet PO 06/06/25 08:56 650 mg Q6H PRN Administration Fever >101.5 Albuterol/Ipratropium 3 ml 05/07/25 13:00 05/10/25 12:42 Albuterol/Ipratropium (Duoneb) Rt Alice 3 Ml Nebu INH 06/06/25 12:59 3 ml Q6HRRT NATALY Administration Amlodipine Besylate 5 mg 05/08/25 09:00 05/10/25 08:04 Amlodipine Besylate 5 Mg Tablet PO 06/07/25 08:59 5 mg DAILY NATALY Administration Bisacodyl 5 mg 05/08/25 10:00 05/10/25 08:04 Bisacodyl 5 Mg Tabec PO 06/07/25 09:59 5 mg QDAY NATALY Administration Protocol Dextrose 25 ml 05/07/25 17:21 Dextrose 50%-Water Inj 50 Ml Syringe IV 06/06/25 17:20 Q15MIN PRN BG 50-70 responsive npo pt Dextrose 50 ml 05/07/25 17:21 Dextrose 50%-Water Inj 50 Ml Syringe IV 06/06/25 17:20 Q15MIN PRN BG <50 OR BG <70 & pt unresponsive Glucagon 1 mg 05/07/25 17:21 Glucagon Inj 1 Mg Vial IM Q15MIN PRN BG <70, and no IV access Heparin Sodium (Porcine) 5,000 unit 05/07/25 14:00 05/10/25 13:44 Heparin Sod Inj 5000 Unit/Ml Vial SC 05/21/25 13:59 5,000 unit Q8HR NATALY Administration Azithromycin 500 mg/ Sodium 250 mls @ 250 mls/hr 05/08/25 09:00 05/10/25 09:57 Chloride IV 05/15/25 08:59 250 mls/hr QDAY NATALY Administration Cefepime HCl 2 gm/ Sodium 50 mls @ 100 mls/hr 05/07/25 17:27 05/10/25 08:04 Chloride IV 05/14/25 17:26 100 mls/hr Q12HR NATALY Administration Ibuprofen 600 mg 05/09/25 08:40 Ibuprofen Tab 600 Mg Tablet PO 06/06/25 08:56 Q6H PRN PAIN Insulin Human Lispro 0 unit 05/08/25 17:00 05/10/25 11:26 Insulin Lispro (Admelog) 1 Unit/0.01 Ml Unit SC 06/07/25 16:59 2 unit ACHS NATALY Administration Protocol Loratadine 10 mg 05/08/25 09:00 05/10/25 08:04 Loratadine 10 Mg Tablet PO 06/07/25 08:59 10 mg DAILY NATALY Administration Metoclopramide HCl 10 mg 05/07/25 08:57 Metoclopramide 5 Mg Tablet PO 06/06/25 08:56 Q6H PRN NAUSEA OR VOMITING Metoprolol Succinate 25 mg 05/08/25 09:00 05/10/25 08:04 Metoprolol Succinate Xl 25 Mg Tabcr PO 06/07/25 08:59 25 mg DAILY NATALY Administration Polyethylene Glycol 17 gm 05/08/25 10:15 05/10/25 08:04 Polyethylene Glycol 17 Gm Packet PO 06/07/25 10:14 17 gm QDAY NATALY Administration Sodium Chloride 3 ml 05/07/25 05:38 Sodium Chloride Rt Alice 0.9% 3 Ml Nebu INH 06/06/25 05:37 PRN PRN SOLN Plan 80-year-old female PMHx of HTN, HLD, T2DM, rheumatoid arthritis on DMARDS, 5.7 cm thyroid nodule, presenting with acute SOB and sore throat and cough/chills x 1 week. Admitted for pneumonia and workup for thyroid nodule and speculated lung mass. Appreciate recommendations from oncology team. AHRF 2/2 Community acquired pneumonia Immunocompromised Presented with chills, cough and SOB for x1 week CXR indicative of right lobe PNA Patient immunocompromised due to DMARD's for RA Negative cocci IgM. 48-hour blood culture negative, continued afebrile without leukocytosis. Although, continue requiring oxygen, desatting significantly on ambulation. ? DuoNebs q.6h. ? Continue incentive spirometry ? Physical therapy ? Continue CEFEPIME (05/08 to present) ? Continue AZITHROMYCIN (05/08 to present) ? Following panculture, cocci IgG Left middle thyroid nodule Speculated lung nodule Patient with 5.7 cm left middle lobe thyroid nodule 2021 FNA resulted non-diagnostic due to sample Patient complaining of intermittent dysphagia Chest CT indicated: Marked left thyromegaly with left thyroid nodules extending retrosternal displacing the trachea to the right CXR and chest CT also show 13mm spiculated nodule of right middle lobe, concern for malignancy. Evidently, mass is not safe for biopsy, per radiology/oncology. CT abdomen didn't not show any concerning masses. TSH 1.27, free T41.05. IR guided FNA was done yesterday, pending pathology report. ? Oncology on board ? Pending CT abdominal pelvis rule out malignancy/mets, rule out ventral hernia Fat-containing ventral hernia CT abdominal pelvis showed 21 mm fat-containing umbilical hernia, no inguinal or common femoral hernia, normal appendix, mildly thickened urinary bladder wall, mildly enlarged common bile duct (11 mm), although patient asymptomatic, denies abdominal pain, TPN, LFTs within normal limits. Rheumatoid arthritis on DMARDS ? Holding home METHOTREXATE and HYDROXYCHLOROQUINE in settings of pneumonia HTN BP on softer side. ? Continue AMLODIPINE 5 mg daily ? Continue home METOPROLOL 25 mg daily T2DM ? INSULIN sliding scale ? Accu-Cheks Constipation ? Started MIRALAX and COLACE Health maintenance Diet: CHO consistent GI prophylaxis: Not indicated DVT prophylaxis: HEPARIN subcu Antibiotics: CEFEPIME, AZITHROMYCIN CODE STATUS: Full code Disposition: Admitted for pneumonia and IV ANTIBIOTICS, pending cultures and thyroid FNA results. Case was discussed with attending physician and senior resident. DO ORLIN Parrish This document was transcribed using voice recognition technology. Minor inaccuracies may be present.
[2025-05-11] VITALS (9 sets, daily range): BP systolic 124–141; BP diastolic 55–65; PULSE 72–90; RESP 18–22; TEMP 36.4–36.6; O2SAT 93–97; BMI 39.6
[2025-05-11] MEDS: ALBUTEROL/IPRATROPIUM (Duoneb) RT SOL 3 ML NEBU INH ×3 (01:19→13:28)
[2025-05-11] MEDS: HEPARIN SOD INJ 5000 UNIT/ML VIAL SC (05:46)
[2025-05-11] MEDS: METOCLOPRAMIDE 5 MG TABLET 10 MG PO (05:59)
[2025-05-11 07:29] LABS: Alanine Aminotransferase 9 U/L (10-49); Albumin, Serum 3.7 gm/dL (3.4-4.8); Albumin/Globulin Ratio 1.2 (1.2-2.2); Alkaline Phosphatase 67 U/L (46-116); Anion Gap 9 (7-16); Aspartate Amino Transferase 11 U/L (0-34); BUN/Creatinine Ratio 12 Ratio (12-20); Bilirubin,Total 0.5 mg/dL (0.3-1.2); Blood Urea Nitrogen 14 mg/dL (9-23); Calcium 8.9 mg/dL (8.3-10.6); Calcium (Corrected) 9.1 mg/dL (8.5-10.1); Carbon Dioxide 27.2 mMol/L (20.0-31.0); Chloride 101 mMol/L (98-107); Creatinine (Component) 1.2 mg/dL (0.6-1.3); Estimated Creatinine Clearance 41.6 mL/min (>60); Globulin 3.2 gm/dL (2.3-3.5); Glucose 111 mg/dL (74-106); Magnesium 1.9 mg/dL (1.6-2.6); Osmolality,Calculated 275 (275-295); Phosphorous 2.5 mg/dL (2.4-5.1); Potassium 3.7 mMol/L (3.4-5.1); Sodium 137 mMol/L (136-145); Total Protein 6.9 gm/dL (5.7-8.2); eGFR 46 See Note
[2025-05-11 07:38] LABS: Basophils % (Auto) 1 % (0-2.5); Eosinophils # (Auto) 0.3 Thou/mm3 (0.0-0.5); Eosinophils % (Auto) 5 % (0-10); Hemoglobin 12.8 g/dL (12.0-16.0); Immature Granulocytes % (Auto) 1 % (0-0); Immature Granulocytes Auto 0.04 Thou/mm3 (0.00-0.00); Lymphocytes # (Auto) 1.2 Thou/mm3 (1.0-4.8); Lymphocytes % (Auto) 17 % (10-50); Mean Corpuscular HGB Conc 32.8 g/dl (31.0-37.0); Mean Corpuscular Hemoglobin 31.6 pg (25.0-35.0); Mean Corpuscular Volume 96 fL (80-100); Monocytes # (Auto) 0.6 Thou/mm3 (0.0-0.8); Monocytes % (Auto) 9 % (0-12); Neutrophils # (Auto) 4.6 Thou/mm3 (1.8-7.7); Neutrophils % (Auto) 69 % (37-80); Nucleated Red Blood Cell % 0 /100 WBC (0); Platelet Count 157 Thou/mm3 (140-440); RDW Standard Deviation 47.6 fL (36.4-46.3); Red Blood Count 4.05 Miln/mm3 (4.00-5.20); White Blood Count 6.7 Thou/mm3 (3.6-11.0)
[2025-05-11] MEDS: amLODIPine BESYLATE 5 MG TABLET PO (08:03)
[2025-05-11] MEDS: POLYETHYLENE GLYCOL 17 GM PACKET PO (08:03)
[2025-05-11] MEDS: CEFEPIME INJ 2 GM in SODIUM CHLORIDE 0.9% (Popper) 50 ML IV (08:03)
[2025-05-11] MEDS: METOPROLOL SUCCINATE XL 25 MG TABCR PO (08:04)
[2025-05-11] MEDS: bisacodyL 5 MG TABEC PO (08:04)
[2025-05-11] MEDS: lorataDINE 10 MG TABLET PO (08:04)
[2025-05-11] MEDS: AZITHROMYCIN INJ 500 MG in SODIUM CHLORIDE 0.9% 250 ML 250 ML 250 MG IV (09:37)
--- NOTE | 2025-05-11 10:11 | PC.SS ---
Follow up note: SS met with patient this morning with nursing staff to discuss d/c plans. Patient confirmed she will d/c to [facility] due to living situation not set up for . Orders were placed. SS set up gurney transport through [employer] with a reference# [id number] gurney transport for a pickling solution maker at 2p.m. Requested [place] ambulance.
[2025-05-11] MEDS: ACETAMINOPHEN 325 MG TABLET 650 MG PO (10:34)
[2025-05-11] MEDS: INSULIN LISPRO (AdmeLOG) 1 UNIT/0.01 ML UNIT SC (11:42)
--- NOTE | 2025-05-11 13:17 | PC.NURSE ---
gave report to stephanie at [facility]
--- NOTE | 2025-05-11 16:32 | PD.RESDS ---
Planned Discharge Date 05/11/25 DS: Providers Provider Date of admission: 05/07/25 08:57 Primary care physician: Tay Chavez MD Admitting Provider: Latoya Jerome DO Attending Provider on Admission: Kiah Wynne MD Consults: 05/09/25 10:45 Consult to Oncology Routine Comment: Concern for met cancer Consulting Provider: Brian Evans Instructions: Thyroid nodule (FNA done), spec lung mass, hx of adrenal nodule Attending Provider on DC: Cristian Cantor MD Discharging Provider: Cristian Cantor MD Hospital Course Hospital Course Hospital course: No acute overnight events. Continued to require oxygen, currently on 2-3 L NC, satting in low 90s, but desatting with minimal exertion. Abdominal CT showed ventral hernia, but no mass. Dr. Evans, oncology, unlikely with biopsy lung mass. given the location, however will follow-up with CT abdomen and thyroid FNA. services account manager is currently working on home oxygen arrangement. Patient currently does not have electrical oxygen at home. She may be going to SNF until 2 electrical issue have resolved. Time Spent with Patient Time attestation: Total time spent providing and/or coordinating discharge services: Exam Vital Signs Temp Pulse Resp BP Pulse Ox O2 Del Method O2 Flow Rate 97.9 F 73 20 137/63 H 97 Nasal Cannula 2 05/11/25 11:43 05/11/25 13:30 05/11/25 13:30 05/11/25 11:43 05/11/25 13:30 05/11/25 11:43 05/11/25 13:30 Discharge Plan Plan Patient Disposition: Xfer Skilled Nsg Fac (SNF) Prescriptions/Referrals Prescriptions/Med Rec: New levofloxacin 750 mg tablet 750 mg PO QDAY Qty: 5 0RF azithromycin 500 mg tablet 500 mg PO QDAY 5 Days Qty: 5 0RF Continued metformin 1,000 mg Tablet 1,000 mg PO BID Januvia 100 mg Tablet 100 mg PO QDAY insulin glargine [Basaglar KwikPen U-100 Insulin] 100 unit/mL (3 mL) Insulin Pen 60 unit SUBCUT QAM loratadine 10 mg tablet 10 mg PO DAILY Patient Comments: TAKE 1 TABLET BY MOUTH ONCE DAILY diclofenac sodium 50 mg tablet,delayed release (DR/EC) 50 mg PO BID PRN (Reason: pain) Patient Comments: TAKE 1 TABLET BY MOUTH TWICE DAILY NEEDED amlodipine 5 mg tablet 5 mg PO DAILY Patient Comments: TAKE 1 TABLET BY MOUTH ONCE DAILY metoprolol succinate 25 mg tablet extended release 24 hr 25 mg PO DAILY Patient Comments: TAKE 1 TABLET BY MOUTH ONCE DAILY Held methotrexate sodium 2.5 mg Tablet 2.5 mg PO QWEEK Hold Instructions: Resume on 05/17/25. Rx Instructions: TAKE FIVE TABLETS BY MOUTH ONCE A WEEK FOR PAIN AND INFLAMMATION hydroxychloroquine 200 mg tablet 200 mg PO DAILY Hold Instructions: Resume on 05/17/25. Patient Comments: TAKE 2 TABLETS BY MOUTH ONCE DAILY Referrals: Tay Chavez MD [Primary Care Provider] - Patient/Caregiver Discharge Instructions Discharge Activity: resume usual activities Education Materials: Biopsy Thyroid Fine Needle Dc Print Language: Peruvian Stand Alone Forms: Liliya Award Info., Patient Portal Info Letter Discharge Order Discharge Orders: Discharge (Routine); Ordered 05/11/25 Ordered By: Cristian Cantor
== END 2025-05-11 13:57 | disposition skilled nursing facility (03) | DRG 193 ==
LOC: SERX 05-07 08:39 → SERHOLD 05-07 13:57 → S3NX 05-07 13:57
PROVIDERS: Internal Medicine; Nurse Practitioner Primary Care; Admitting Provider Internal Medicine; Emergency Provider Emergency Medicine; PCP Family Medicine; Visit Provider Student in an Organized Health Care Education/Training Program
DX: J18.9 Pneumonia, unspecified organism (principal); J96.01 Acute respiratory failure with hypoxia; D84.9 Immunodeficiency, unspecified; R09.02 Hypoxemia; E04.1 Nontoxic single thyroid nodule; R91.1 Solitary pulmonary nodule; E78.5 Hyperlipidemia, unspecified; I10 Essential (primary) hypertension; M06.9 Rheumatoid arthritis, unspecified; E11.9 Type 2 diabetes mellitus without complications; E04.2 Nontoxic multinodular goiter; K59.00 Constipation, unspecified; K43.9 Ventral hernia without obstruction or gangrene; E27.9 Disorder of adrenal gland, unspecified; R13.10 Dysphagia, unspecified; K42.9 Umbilical hernia without obstruction or gangrene; M46.1 Sacroiliitis, not elsewhere classified; Z79.84 Long term (current) use of oral hypoglycemic drugs; Z79.899 Other long term (current) drug therapy
CPT/HCPCS: 36415; 71046; 71250; 74176; 80053; 81001; 83605; 83735; 83880; 84100; 84145; 84439; 84443; 84484; 85025; 85610; 85730; 86331; 86635; 87040; 87400; 87651; 87811; 93005; 93225; 94640; 94644; 96365; 96367; 96375; 99285; A9270; J0456; J0692; J0696; J1644; J1815; J2919; J7050; J7609

== ENCOUNTER → 2025-05-06 | Outpatient (CLI) | payer MEDICARE, MEDICAID, SELFPAY ==
--- NOTE | 2025-05-06 14:00 | XR_ITS ---
Examination: MRI sacrum, without contrast Date and time of exam: May 06, 2025 1513 hours INDICATIONS: Patient fell 30 years ago off a ladder with persistent pain in the sacral region, diagnosis sacroiliitis Technique: Multiple axial sagittal and coronal images of the sacrum have been obtained with the Siemens high-resolution 1.5 Roxy MRI scanner. Images obtained include T2-weighted fat-suppressed sagittal sections, TR 3500, TE 46, T2 weighted coronal fat suppressed images, TR 3050, TE 84, T2-weighted transverse fat suppressed images, TR 3260, TE 63, proton density transverse images, TR 4720 TE 46, and T1 weighted coronal images, TR 560, TE 13. Findings: Irregularity of the sacral margins bilaterally with mild fluid in the bilateral sacroiliac joints No fractures Adequate marrow signal visualized sacral segments and iliac bones Incidental note 23 mm simple right ovarian cyst IMPRESSION: Mild to moderate bilateral sacroiliitis
== END | disposition home or self-care (01) ==
PROVIDERS: PCP Nurse Practitioner Family; Referring Provider Nurse Practitioner Family; Visit Provider Nurse Practitioner Family
DX: M46.1 Sacroiliitis, not elsewhere classified (principal)
CPT/HCPCS: 72195

== ENCOUNTER 2025-07-02 12:56 | Outpatient (RCR) | payer MEDICARE, MEDICAID, SELFPAY ==
--- NOTE | 2025-07-02 14:37 | CTCFLWUP_ITS ---
[facility] [address] [place], [place] [address] FOLLOW-UP NOTE Date: 07/02/2025 MR#: [id number] Name: LYDIA ANTHONY : 1945 Dx: E07.9 Disorder of thyroid, unspecified Identification. Patient was admitted in April for pneumonia and during workup he was noted that patient had very large thyroid. Please see consult of 05/09/2025. CT chest 05/07/2025 revealed marked left thyromegaly extending to substernal with left thyroid nodules. There was also a 13 mm spiculated nodule right middle lobe. Abdominal pelvis CT revealed mild enlargement of common bile duct and common hepatic duct along with mild thickening of the urinary bladder wall. Ultrasound-guided FNA of left thyroid performed 05/08/2025 revealed [place] category 1 suboptimal cellularity nondiagnostic. Patient states that she had [employer] surgery for uterine cancer which was removed in [place] about [address] shows absence of uterus. Tumor markers were ordered but unfortunately was not done prior to discharge. As I see patient today she appears comfortable with no complaints of pain or weight loss. I shall order neck chest abdomen pelvis CT scan with contrast and order tumor markers and standard labs. I will see her back in 2 months. Electronically signed by: Brian Evans M.D. 07/02/2025 2:35 PM
== END 2025-07-13 23:59 | disposition home or self-care (01) ==
LOC: SCTC 12:56
PROVIDERS: PCP Family Medicine; Referring Provider Family Medicine; Visit Provider Radiology Therapeutic Radiology
DX: E04.1 Nontoxic single thyroid nodule (principal); K83.8 Other specified diseases of biliary tract; N32.89 Other specified disorders of bladder; Z90.710 Acquired absence of both cervix and uterus; Z85.42 Personal history of malignant neoplasm of other parts of uterus
CPT/HCPCS: 99213; G0463

== ENCOUNTER → 2025-07-25 | Outpatient (CLI) | payer MEDICARE, MEDICAID, SELFPAY ==
--- NOTE | 2025-07-25 12:30 | XR_ITS ---
Examination: Thyroid sonography complete TECHNIQUE: Grayscale sonographic images thyroid lobes Date and time: July 25, 2025 1214 hours,. INDICATIONS: CT chest May 07, 2025 marked left thyromegaly extending substernal with left thyroid nodules, patient states left neck lump beginning one year ago FINDINGS: Right thyroid 3.4 cm Upper pole cyst 7 x 6 mm Left thyroid 6.2 cm Complex mass replacing the left thyroid lobe 5.2 x 3.3 x 5.6 cm IMPRESSION: Complex mass replacing the left thyroid lobe, 5.2 x 3.3 x 5.6 cm, consider repeat biopsy of this thyroid mass
== END | disposition home or self-care (01) ==
LOC: CDIM 12:01
PROVIDERS: Referring Provider Family Medicine; Visit Provider Family Medicine
DX: R22.1 Localized swelling, mass and lump, neck (principal)
CPT/HCPCS: 76536

== ENCOUNTER → 2025-08-01 | Outpatient (CLI) | payer MEDICARE, MEDICAID, SELFPAY ==
[2025-08-01 11:28] LABS: Basophils # (Auto) 0.1 Thou/mm3 (0.0-0.2); Basophils % (Auto) 1 % (0-2.5); Eosinophils # (Auto) 0.3 Thou/mm3 (0.0-0.5); Eosinophils % (Auto) 3 % (0-10); Hematocrit 45.8 % (36.0-46.0); Hemoglobin 15.1 g/dL (12.0-16.0); Immature Granulocytes Auto 0.07 Thou/mm3 (0.00-0.00); Lymphocytes # (Auto) 1.4 Thou/mm3 (1.0-4.8); Lymphocytes % (Auto) 15 % (10-50); Mean Corpuscular HGB Conc 33.0 g/dl (31.0-37.0); Mean Corpuscular Hemoglobin 32.2 pg (25.0-35.0); Mean Corpuscular Volume 98 fL (80-100); Monocytes # (Auto) 0.7 Thou/mm3 (0.0-0.8); Monocytes % (Auto) 7 % (0-12); Neutrophils # (Auto) 6.8 Thou/mm3 (1.8-7.7); Neutrophils % (Auto) 73 % (37-80); Nucleated Red Blood Cell # 0.00 Thou/mm3 (0.00-0.00); Nucleated Red Blood Cell % 0 /100 WBC (0); Platelet Count 202 Thou/mm3 (140-440); RDW Standard Deviation 47.6 fL (36.4-46.3); Red Blood Count 4.69 Miln/mm3 (4.00-5.20); White Blood Count 9.3 Thou/mm3 (3.6-11.0)
[2025-08-01 11:59] LABS: Alanine Aminotransferase 23 U/L (10-49); Albumin, Serum 4.4 gm/dL (3.4-4.8); Albumin/Globulin Ratio 1.7 (1.2-2.2); Alkaline Phosphatase 77 U/L (46-116); Anion Gap 7 (7-16); Aspartate Amino Transferase 27 U/L (0-34); BUN/Creatinine Ratio 10 Ratio (12-20); Bilirubin,Total 0.8 mg/dL (0.3-1.2); Blood Urea Nitrogen 6 mg/dL (9-23); Calcium 9.8 mg/dL (8.3-10.6); Calcium (Corrected) 9.8 mg/dL (8.5-10.1); Carbon Dioxide 32.8 mMol/L (20.0-31.0); Chloride 102 mMol/L (98-107); Creatinine (Component) 0.6 mg/dL (0.6-1.3); Globulin 2.6 gm/dL (2.3-3.5); Glucose 135 mg/dL (74-106); Osmolality,Calculated 282 (275-295); Potassium 4.4 mMol/L (3.4-5.1); Sodium 142 mMol/L (136-145); Total Protein 7.0 gm/dL (5.7-8.2); eGFR > 60 See Note
== END | disposition home or self-care (01) ==
LOC: SCTO 10:10
PROVIDERS: PCP Family Medicine; Referring Provider Radiology Therapeutic Radiology; Visit Provider Radiology Therapeutic Radiology
DX: E07.9 Disorder of thyroid, unspecified (principal)
CPT/HCPCS: 36415; 80053; 85025

== ENCOUNTER → 2025-08-12 | Outpatient (CLI) | payer MEDICARE, MEDICAID, SELFPAY ==
--- NOTE | 2025-08-12 10:00 | XR_ITS ---
Examination: CT chest with intravenous contrast CT abdomen with intravenous contrast CT pelvis with intravenous contrast 2-D coronal and sagittal reconstructions Time of exam: August 12, 2025, 1117 hours, comparison CT abdomen pelvis May 09, 2025 INDICATIONS: Diagnosis thyroid disorder, history generalized abdominal pain, history marked thyromegaly on the left with left thyroid nodules on CT chest May 07, 2025 CTDI: vol (mGy) : 13.7 DLP: (mGycm): 977 Technique: Multiple axial images of the chest, abdomen and pelvis with intravenous contrast, 3.0 mm slice thickness. Images obtained post intravenous injection Isovue 370 60 cc. 2-D sagittal and coronal reconstructions. Low dose protocols were performed. One or more of the following dose reduction techniques were used; automated exposure control, adjustment of the mA and/or KV according to patient size, use of iterative reconstruction technique. Findings: Prominent left thyromegaly with complex partially cystic mass replacing the left thyroid lobe, at least 5.3 cm in dimension Enlarged left thyroid lobe is displacing the trachea to the right No paratracheal tracheobronchial or bronchopulmonary adenopathy No thoracic aortic aneurysm dilatation No pulmonary artery filling defects Again noted 13 mm nodule in the right middle lobe with indistinct margins,. Also 4 mm pulmonary nodule right lower lobe, 4 mm pulmonary nodule left lower lobe Vascular congestion moderate Fatty infiltration throughout the liver no focal liver or splenic lesions Gallbladder not visualized Common bile duct 12 mm Spleen not enlarged No pancreatic mass No hydronephrosis Aorta normal size Normal appendix Suspicious for 17 mm right adnexal solid mass Absent uterus Contracted urinary bladder Prominent osteopenia IMPRESSION: Prominent left thyromegaly, displacing the trachea to the right, 5.3 cm partially cystic mass replacing the left thyroid lobe Pulmonary nodules as above, differential would include pulmonary nodular metastatic disease Moderate vascular congestion Enlarged common bile duct 12 mm but no stones Normal appendix Recommend pelvic sonography follow-up to exclude 17 mm right ovarian solid tumor mass
--- NOTE | 2025-08-12 10:17 | XR_ITS ---
Examination: CT soft tissue neck, with intravenous contrast. 2-D coronal reconstructions. 2-D sagittal reconstructions. Date and time of exam :August 12, 2025, 1117 hours INDICATIONS: CT chest May 07, 2025 enlarged left thyroid, large left thyroid nodule, displacing the trachea to the right, 13 mm spiculated nodule in the right middle lobe. CTDI: vol (mGy):20.2 DLP: (mGycm):570 Technique: 1.25 mm axial sections of the neck of the obtained. Coronal and sagittal reconstructions have been obtained. Intravenous contrast administered 60 cc Isovue-370. Low dose protocols were performed. One or more of the following dose reduction techniques were used; automated exposure control, adjustment of the mA and/or KV according to patient size, use of iterative reconstruction technique. Findings: Chronic sinus disease left maxillary antrum Symmetrical nasopharynx oropharynx The larynx appears normal Marked left thyromegaly, marked displacement of the trachea to the right, complex 5.3 cm mass replacing the left thyroid lobe Normal epiglottis IMPRESSION: Marked left thyromegaly, complex left thyroid mass replacing the entire left thyroid lobe Significant displacement of the trachea to the right
== END | disposition home or self-care (01) ==
PROVIDERS: PCP Family Medicine; Referring Provider Radiology Therapeutic Radiology; Visit Provider Radiology Therapeutic Radiology
DX: E01.0 Iodine-deficiency related diffuse (endemic) goiter (principal); R91.8 Other nonspecific abnormal finding of lung field; R09.89 Other specified symptoms and signs involving the circulatory and respiratory systems; K83.9 Disease of biliary tract, unspecified
CPT/HCPCS: 70491; 71260; 74177; A4649; Q9967

== ENCOUNTER → 2025-08-15 | Outpatient (CLI) | payer MEDICARE, MEDICAID, SELFPAY ==
[2025-08-15 10:43] LABS: Basophils # (Auto) 0.1 Thou/mm3 (0.0-0.2); Basophils % (Auto) 1 % (0-2.5); Eosinophils # (Auto) 0.3 Thou/mm3 (0.0-0.5); Eosinophils % (Auto) 3 % (0-10); Hematocrit 46.1 % (36.0-46.0); Hemoglobin 14.8 g/dL (12.0-16.0); Immature Granulocytes Auto 0.02 Thou/mm3 (0.00-0.00); Lymphocytes # (Auto) 1.1 Thou/mm3 (1.0-4.8); Lymphocytes % (Auto) 15 % (10-50); Mean Corpuscular HGB Conc 32.1 g/dl (31.0-37.0); Mean Corpuscular Hemoglobin 31.0 pg (25.0-35.0); Mean Corpuscular Volume 97 fL (80-100); Monocytes # (Auto) 0.6 Thou/mm3 (0.0-0.8); Monocytes % (Auto) 8 % (0-12); Neutrophils # (Auto) 5.5 Thou/mm3 (1.8-7.7); Neutrophils % (Auto) 73 % (37-80); Nucleated Red Blood Cell # 0.00 Thou/mm3 (0.00-0.00); Nucleated Red Blood Cell % 0 /100 WBC (0); Platelet Count 186 Thou/mm3 (140-440); RDW Standard Deviation 48.1 fL (36.4-46.3); Red Blood Count 4.77 Miln/mm3 (4.00-5.20); White Blood Count 7.6 Thou/mm3 (3.6-11.0)
[2025-08-15 11:04] LABS: Vitamin D 25 Hydroxy Total 21.0 ng/mL (7.3-40.2)
[2025-08-15 11:11] LABS: Alanine Aminotransferase 15 U/L (10-49); Albumin, Serum 4.5 gm/dL (3.4-4.8); Albumin/Globulin Ratio 1.7 (1.2-2.2); Alkaline Phosphatase 85 U/L (46-116); Anion Gap 6 (7-16); Aspartate Amino Transferase 21 U/L (0-34); BUN/Creatinine Ratio 14 Ratio (12-20); Bilirubin,Total 0.5 mg/dL (0.3-1.2); Blood Urea Nitrogen 11 mg/dL (9-23); C-Reactive Protein < 0.5 mg/dL (0.0-0.9); Calcium 9.9 mg/dL (8.3-10.6); Calcium (Corrected) 9.9 mg/dL (8.5-10.1); Carbon Dioxide 35.6 mMol/L (20.0-31.0); Chloride 101 mMol/L (98-107); Creatinine (Component) 0.8 mg/dL (0.6-1.3); Globulin 2.6 gm/dL (2.3-3.5); Glucose 160 mg/dL (74-106); Osmolality,Calculated 287 (275-295); Potassium 4.8 mMol/L (3.4-5.1); Sodium 143 mMol/L (136-145); Total Protein 7.1 gm/dL (5.7-8.2); eGFR > 60 See Note
[2025-08-15 11:33] LABS: Sed Rate (ESR) 21 mm/hr (0-30)
== END | disposition home or self-care (01) ==
LOC: COPL 09:57
PROVIDERS: PCP Family Medicine; Referring Provider Nurse Practitioner Family; Visit Provider Nurse Practitioner Family
DX: M81.0 Age-related osteoporosis without current pathological fracture (principal); M06.09 Rheumatoid arthritis without rheumatoid factor, multiple sites
CPT/HCPCS: 36415; 80053; 82306; 85025; 85652; 86140

== ENCOUNTER → 2025-08-26 | Outpatient (CLI) | payer MEDICARE, MEDICAID, SELFPAY ==
[2025-08-26 09:48] LABS: Alanine Aminotransferase 19 U/L (10-49); Albumin, Serum 4.7 gm/dL (3.4-4.8); Albumin/Globulin Ratio 1.5 (1.2-2.2); Alkaline Phosphatase 78 U/L (46-116); Anion Gap 8 (7-16); Aspartate Amino Transferase 24 U/L (0-34); BUN/Creatinine Ratio 13 Ratio (12-20); Bilirubin,Total 0.8 mg/dL (0.3-1.2); Blood Urea Nitrogen 9 mg/dL (9-23); Calcium 9.8 mg/dL (8.3-10.6); Calcium (Corrected) 9.8 mg/dL (8.5-10.1); Carbon Dioxide 33.2 mMol/L (20.0-31.0); Chloride 101 mMol/L (98-107); Creatinine (Component) 0.7 mg/dL (0.6-1.3); Globulin 3.2 gm/dL (2.3-3.5); Glucose 121 mg/dL (74-106); Osmolality,Calculated 282 (275-295); Potassium 4.2 mMol/L (3.4-5.1); Sodium 142 mMol/L (136-145); Total Protein 7.9 gm/dL (5.7-8.2); eGFR > 60 See Note
[2025-08-26 09:54] LABS: Basophils # (Auto) 0.0 Thou/mm3 (0.0-0.2); Basophils % (Auto) 1 % (0-2.5); Eosinophils # (Auto) 0.4 Thou/mm3 (0.0-0.5); Eosinophils % (Auto) 5 % (0-10); Hematocrit 46.2 % (36.0-46.0); Hemoglobin 14.8 g/dL (12.0-16.0); Immature Granulocytes Auto 0.03 Thou/mm3 (0.00-0.00); Lymphocytes # (Auto) 1.2 Thou/mm3 (1.0-4.8); Lymphocytes % (Auto) 15 % (10-50); Mean Corpuscular HGB Conc 32.0 g/dl (31.0-37.0); Mean Corpuscular Hemoglobin 30.9 pg (25.0-35.0); Mean Corpuscular Volume 97 fL (80-100); Monocytes # (Auto) 0.6 Thou/mm3 (0.0-0.8); Monocytes % (Auto) 7 % (0-12); Neutrophils # (Auto) 5.5 Thou/mm3 (1.8-7.7); Neutrophils % (Auto) 72 % (37-80); Nucleated Red Blood Cell # 0.00 Thou/mm3 (0.00-0.00); Nucleated Red Blood Cell % 0 /100 WBC (0); Platelet Count 188 Thou/mm3 (140-440); RDW Standard Deviation 48.0 fL (36.4-46.3); Red Blood Count 4.79 Miln/mm3 (4.00-5.20); White Blood Count 7.6 Thou/mm3 (3.6-11.0)
[2025-08-26 11:41] LABS: CA 125 11.0 U/mL (<30.2); CA 15-3 6.7 U/mL (<32.4); Carcinoembryonic Antigen 1.3 ng/mL (0.0-5.0)
[2025-08-29 06:22] LABS: CA 19-9 Antigen* 14 U/mL (<34)
== END | disposition home or self-care (01) ==
PROVIDERS: PCP Family Medicine; Referring Provider Radiology Therapeutic Radiology; Visit Provider Radiology Therapeutic Radiology
DX: E07.9 Disorder of thyroid, unspecified (principal)
CPT/HCPCS: 36415; 80053; 82378; 85025; 86300; 86301; 86304

== ENCOUNTER 2025-09-02 13:51 | Outpatient (RCR) | payer MEDICARE, MEDICAID, SELFPAY ==
--- NOTE | 2025-09-02 15:33 | CTCFLWUP_ITS ---
[facility] [address] [place], [place] [address] FOLLOW-UP NOTE Date: 09/02/2025 MR#: [id number] Name: LYDIA ANTHONY : 1945 Dx: E07.9 Disorder of thyroid, unspecified Identification. Patient was admitted in April for pneumonia and during the workup was noted the patient a very large thyroid. CT chest 05/07/2025 revealed marked left thyromegaly extending to the substernal with left thyroid nodules. Ultrasound-guided FNA left thyroid performed 05/08/2025 revealed [place] category 1 suboptimal cellularity nondiagnostic. Patient reportedly had [employer] surgery for uterine cancer that is removed in [place] about 20 years ago. Patient had repeat CT neck chest abdomen pelvis performed 08/12/2025. Again noted was marked left thyromegaly significant displacement of the trachea to the right. 13 mm nodule right middle lobe with indistinct margins and subcentimeter right lower lobe and left lower lobe nodules. Enlarged common bile duct 12 mm no stones. Right adnexal solid mass noted 17 mm. 08/26/2025 CBC WBC hemoglobin platelets unremarkable. CMP also unremarkable. Tumor markers 08/26/2025 CEA 1.3 CA 15-3 6.7 CA125 11 CA 19?9 14 all within normal limits. States that she can breathe normally but does get somewhat short of breath at night. Lungs sound clear with no adenopathy felt peripherally. A#1. Marked left thyromegaly with displacement of trachea to the right A#2. 13 mm right middle lobe nodule with subcentimeter lung lesions. A#3. Had prior FNA of left thyroid nondiagnostic. Shall refer patient to thoracic surgeon. A#4. Will get ultrasound of the pelvis for the solid right adnexal mass. Cc Tay Chavez MD: Electronically signed by: Brian Evans M.D. 09/02/2025 3:31 PM
== END 2025-09-12 23:59 | disposition home or self-care (01) ==
LOC: SCTC 13:51
PROVIDERS: PCP Nurse Practitioner Family; Referring Provider Nurse Practitioner Family; Visit Provider Radiology Therapeutic Radiology
DX: E01.0 Iodine-deficiency related diffuse (endemic) goiter (principal); R91.8 Other nonspecific abnormal finding of lung field; R19.09 Other intra-abdominal and pelvic swelling, mass and lump
CPT/HCPCS: 99213; G0463